=== PATIENT | male | born 1995 | race African-American/Black ===

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

== ENCOUNTER 2017-02-06 11:34 | Emergency (ER) | payer OTHER ==
[2017-02-06] MEDS ORDERED: Polymyx/Trimethoprim OPTH* 10 ML BTL BOTH EYES ONE (13:22)
--- NOTE | 2017-02-06 13:40 | ED ---
Influenza-Like Illness - HPI Summary HPI Summary: Patient presents with red itchy eyes, sore throat and cough for two days. He presents mostly concerned that his eyes are so "crusty" in the morning and he's never had anything like this before. He has used cough medicine and honey for his throat and cough with good relief. No fever, chills, fatigue, [place], ear or neck pain. - History of Current Complaint Chief Complaint: EDUpperRespComplaint Time Seen by Provider: 02/06/17 12:51 Hx Obtained From: Patient Onset/Duration: Gradual Onset Severity: Moderate Associated Signs & Symptoms: Cough, Sore Throat, Nasal Congestion Related Hx: Possible Flu/Infectious Exposure - Allergy/Home Medications Allergies/Adverse Reactions: Allergies Allergy/AdvReac Type Severity Reaction Status Date / Time pollen Allergy Congestion Uncoded 10/14/16 11:25 PMH/Surg Hx/FS Hx/Imm Hx Endocrine/Hematology History: Denies: Hx Diabetes, Hx Thyroid Disease Cardiovascular History: Denies: Hx Congenital Heart Disease Respiratory History: Reports: Hx Asthma GI History: Denies: Hx Irritable Bowel Sensory History: Denies: Hx Contacts or Glasses, Hx Hearing Aid Opthamlomology History: Denies: Hx Contacts or Glasses Neurological History: Denies: Hx Headaches, Hx Seizures Psychiatric History: Denies: Hx Anxiety - Surgical History Surgery Procedure, Year, and Place: none - Immunization History Date of Tetanus Vaccine: 2009 Infectious Disease History: No Infectious Disease History: Denies: Traveled Outside the [place] in Last 30 Days - Family History Known Family History: Positive: None Negative: Cardiac Disease - Social History Occupation: Employed Full-time Lives: With Family Alcohol Use: None Hx Substance Use: No Substance Use Type: Reports: None Hx Tobacco Use: No Smoking Status (MU): Never Smoked Tobacco Review of Systems Positive: Fatigue. Negative: Fever, Chills Positive: Drainage - morning mostly, Erythema - bilateral . Negative: Blurred Vision, Diplopia Positive: Sore Throat, Nasal Discharge. Negative: Ear Ache Negative: Chest Pain Positive: Cough. Negative: Shortness Of Breath Negative: Vomiting, Diarrhea, Nausea Positive: no symptoms reported Negative: Myalgia Negative: Headache All Other Systems Reviewed And Are Negative: Yes Physical Exam Triage Information Reviewed: Yes Vital Signs On Initial Exam: Initial Vitals Temp 97.5 F 02/06/17 11:37 Vital Signs Reviewed: Yes Appearance: Positive: Well-Appearing, No Pain Distress, Well-Nourished Skin: Positive: Warm, Skin Color Reflects Adequate Perfusion, Dry, Soft Head/Face: Positive: Normal Head/Face Inspection Eyes: Positive: EOMI, EVA, Conjunctiva Inflammed - bilataral, Discharge - clear ENT: Positive: Hearing grossly normal, Pharyngeal erythema, TMs normal. Negative: Tonsillar swelling, Tonsillar exudate, Trismus, Muffled/hoarse voice Neck: Positive: Supple, Nontender, No Lymphadenopathy Respiratory/Lung Sounds: Positive: Clear to Auscultation, Breath Sounds Present Cardiovascular: Positive: RRR Musculoskeletal: Negative: Edema Left, Edema Right Neurological: Positive: Sensory/Motor Intact, Alert, Oriented to Person Place, Time, NV Bundle Intact Distally, Normal Gait Psychiatric: Positive: Affect/Mood Appropriate AVPU Assessment: Alert - [place] Coma Scale Coma Scale Total: 15 Diagnostics - Vital Signs Vital Signs Temp Pulse Resp BP Pulse Ox 02/06/17 12:52 98.9 F 88 18 120/62 99 02/06/17 11:39 97.5 F 87 20 150/90 99 02/06/17 11:37 97.5 F - Laboratory Lab Statement: Any lab studies that have been ordered have been reviewed, and results considered in the medical decision making process. Flu Symptom Course/Dx - Diagnoses Differential Diagnosis/HQI/PQRI: Positive: Bronchitis, Influenza, Pneumonia, Upper Respiratory Infection Provider Diagnoses: Viral illness, Conjunctivitis Discharge - Discharge Plan Condition: Stable Disposition: HOME Patient Education Materials: Viral Syndrome (ED) Referrals: Stuart Cowan MD [Primary Care Provider] - Additional Instructions: Please use the drops provided until symptoms have been resolved for 24 hours. Continue using cough medication and cough drops. Drink extra fluids and get extra rest. Follow-up with your primary care provider if symptoms do not improve in 5-7 days. Return to the emergency department if symptoms worsen.
[2017-02-06 13:49] VITALS: BP 126/68
== END 2017-02-06 13:48 | disposition home or self-care (01) ==
LOC: ED 11:34
DX: B34.9 Viral infection, unspecified (principal); H10.9 Unspecified conjunctivitis; J02.9 Acute pharyngitis, unspecified; R53.83 Other fatigue
CPT/HCPCS: 87651; 99282

== ENCOUNTER 2017-05-02 19:39 | Emergency (ER) | payer OTHER ==
[2017-05-02 19:45] VITALS: BP 130/74
[2017-05-02] MEDS ORDERED: Albuterol/Ipratropium NEB.SOL* Albuterol 2.5 MG/Ipratropium 0.5 MG 3 ML INH ONE (20:04)
[2017-05-02] MEDS ORDERED: predniSONE TAB* 20 MG PO ONE (20:07)
--- NOTE | 2017-05-03 00:23 | ED ---
Mitzy Zarate Rebecca, scribed for Michael Duncan MD on 05/02/17 at 1957 . Asthma - HPI Summary HPI Summary: Pt is a 21 y/o M with a PMHx of asthma presented to ED c/o SOB characterized as dyspnea at rest since this morning. Sx aggravated by nothing, alleviated slightly by albuterol inhaler. Additionally c/o chest tightness and a slight cough. Denies rhionrrhea, sore throat, eye drainage and throat tightening. Pt had 2 asthma attacks last year. Has "heard about" Prednisone, but does not believe he has ever used to before. - History of Current Complaint Chief Complaint: EDAsthma Stated Complaint: SOB Hx Obtained From: Patient Onset/Duration: Still Present Current Severity: None Pain Intensity: 0 Pain Scale Used: 0-10 Numeric Location/Character: Other - SOB, chest tightness Aggravating Symptoms: Nothing Alleviating Symptoms: Inhalers/Nebulizers - INhalers Associated Signs and Symptoms: Positive: Shortness of Breath - Allergy/Home Medications Allergies/Adverse Reactions: Allergies Allergy/AdvReac Type Severity Reaction Status Date / Time pollen Allergy Congestion Uncoded 05/02/17 19:42 PMH/Surg Hx/FS Hx/Imm Hx Endocrine/Hematology History: Denies: Hx Diabetes, Hx Thyroid Disease Cardiovascular History: Denies: Hx Congenital Heart Disease Respiratory History: Reports: Hx Asthma GI History: Denies: Hx Irritable Bowel Sensory History: Denies: Hx Contacts or Glasses, Hx Hearing Aid Opthamlomology History: Denies: Hx Contacts or Glasses Neurological History: Denies: Hx Headaches, Hx Seizures Psychiatric History: Denies: Hx Anxiety - Surgical History Surgery Procedure, Year, and Place: none - Immunization History Date of Tetanus Vaccine: 2009 Infectious Disease History: No Infectious Disease History: Denies: Traveled Outside the [place] in Last 30 Days - Family History Known Family History: Negative: Cardiac Disease - Social History Alcohol Use: None Hx Substance Use: No Substance Use Type: Reports: None Hx Tobacco Use: No Smoking Status (MU): Never Smoked Tobacco Review of Systems Negative: Drainage Positive: Other - NEGATIVE: Throat tightening. Negative: Sore Throat, Nasal Discharge Positive: Other - Chest tightness Positive: Shortness Of Breath, Cough All Other Systems Reviewed And Are Negative: Yes Physical Exam - Summary Physical Exam Summary: The patient is well-nourished in no acute distress and in no acute pain. The skin is warm and skin color reflects adequate perfusion. Skin is slightly diaphoretic and he has good skin turgor. HEENT: The head is normocephalic and atraumatic. The pupils are equal and reactive. The conjunctivae are clear and without drainage. Nares are patent and without drainage. Mouth reveals moist mucous membranes and the throat is without erythema and exudate. The external ears are intact. The ear canals are patent and without drainage. The tympanic membranes are intact. Neck is supple with full range of motion and non-tender. There is some wheezing in his neck with no JVD. No hepatojugular reflex. Respiratory: Chest is non-tender. Diminished breath sounds throughout and he is not moving much air. Wheezing to auscultation. Cardiovascular: Heat is tachycardic. There is no murmur or rub auscultated. Abdomen: The abdomen is soft and non-tender. There are normal bowel sounds heard in all four quadrants and there is no organomegaly palpated. Musculoskeletal: There is no back pain noted. Extremities are non-tender with full range of motion. There is good capillary refill of 2 seconds. Neurological: Patient is alert and oriented to person, place and time. The patient has symmetrical motor strength in all four extremities. Psychiatric: The patient has an appropriate affect and does not exhibit any anxiety or depression. \\ Triage Information Reviewed: Yes Vital Signs On Initial Exam: Initial Vitals Temp Pulse Resp BP Pulse Ox 96.0 F 122 20 130/74 93 05/02/17 19:43 05/02/17 19:43 05/02/17 19:43 05/02/17 19:43 05/02/17 19:43 Vital Signs Reviewed: Yes Diagnostics - Vital Signs Vital Signs Temp Pulse Resp BP Pulse Ox 05/02/17 19:43 96.0 F 122 20 130/74 93 - Laboratory Lab Statement: Any lab studies that have been ordered have been reviewed, and results considered in the medical decision making process. Re-Evaluation - Re-Evaluation First Eval Re-Evaluation Time: 21:16 Change: Improved Comment: After treatment, pt is moving much more air, though he is still wheezing throughout. Reports he feels well enough to go home and does not want a work note. Asthma Course/Dx - Course Assessment/Plan: Pt is a 21 y/o M with a PMHx of asthma presented to ED c/o SOB characterized as dyspnea at rest since this morning. Sx aggravated by nothing, alleviated slightly by albuterol inhaler. Additionally c/o chest tightness and a slight cough. Denies rhionrrhea, sore throat, eye drainage and throat tightening. Pt had 2 asthma attacks last year. Has "heard about" Prednisone, but does not believe he has ever used to before. In the ED course, pt received Prednisone and Duoneb which improved sx. Upon reevaluation, pt continues to wheeze throughout though he is moving more air than previously and states he feels well enough to go home without a work note. Pt will be D/C to home with Dx of acute asthma exerbation with Rx for Prednisone and albuterol inhaler with a workup with his PCP. He understands and is agreeable with this plan. Elevated BP noted and advised to f/u. - Diagnoses Differential Diagnosis/HQI/PQRI: Positive: Acute Asthma Provider Diagnoses: Asthma with acute exacerbation Discharge - Discharge Plan Condition: Stable Disposition: HOME Prescriptions: Albuterol HFA INHALER* [Ventolin HFA Inhaler*] 2 puff INH Q4H PRN #1 mdi PRN Reason: WHEEZING predniSONE TAB* [Deltasone TAB*] 60 mg PO DAILY #15 tab Patient Education Materials: Asthma (ED) Referrals: Stuart Cowan MD [Primary Care Provider] - 3 Days The documentation as recorded by the Mitzy krishnan Rebecca accurately reflects the service I personally performed and the decisions made by me, Michael Duncan MD.
== END 2017-05-02 21:30 | disposition home or self-care (01) ==
LOC: ED 19:39
DX: J45.901 Unspecified asthma with (acute) exacerbation (principal)
CPT/HCPCS: 94640; 99282; A9270-GY; J7512

== ENCOUNTER 2017-06-06 17:50 | Emergency (ER) | payer OTHER ==
[2017-06-06] MEDS ORDERED: Albuterol/Ipratropium NEB.SOL* Albuterol 2.5 MG/Ipratropium 0.5 MG 3 ML INH ONE ×2 (19:01→20:08)
[2017-06-06] MEDS ORDERED: methylPREDNISolone 125 MG* 2 ML VIAL IV ONE (19:01)
[2017-06-06] MEDS ORDERED: Magnesium Sulfate 2 GM IV* 2 GM/50 ML BAG IVPB ONE (20:08)
[2017-06-06 23:11] VITALS: BP 119/73
--- NOTE | 2017-06-18 17:12 | ED ---
Bernabe Zarate Abhishek, scribed for Yunior Motley MD on 06/06/17 at 1900 . Shortness of Breath - HPI Summary HPI Summary: This patient is a 21 year old M presenting to [facility] with a chief complaint of SOB since today. The CC is described as sudden. The patient rates the pain as 9/ 10 in severity. Symptoms aggravated by nothing. Symptoms alleviated by nothing. Patient reports cold , nasal congestion, rhinorrhea, wheezing bilaterally, and expiratory rhonchi. Patient denies sore throat, and fever. PMHx includes asthma. - History of Current Complaint Chief Complaint: EDShortnessOfBreath Time Seen by Provider: 06/06/17 18:30 Hx Obtained From: Patient Onset/Duration: Sudden Onset, Worse Since - since today Timing: Constant Current Severity: Severe Dyspnea At: Rest Aggrevating Factors: Nothing Alleviating Factors: Nothing Associated Signs & Symptoms: Wheezing - bilaterially, Nasal Congestion - since - Allergy/Home Medications Allergies/Adverse Reactions: Allergies Allergy/AdvReac Type Severity Reaction Status Date / Time pollen Allergy Congestion Uncoded 05/02/17 19:42 PMH/Surg Hx/FS Hx/Imm Hx Endocrine/Hematology History: Denies: Hx Diabetes, Hx Thyroid Disease Cardiovascular History: Denies: Hx Congenital Heart Disease Respiratory History: Reports: Hx Asthma GI History: Denies: Hx Irritable Bowel Sensory History: Denies: Hx Contacts or Glasses, Hx Hearing Aid Opthamlomology History: Denies: Hx Contacts or Glasses Neurological History: Denies: Hx Headaches, Hx Seizures Psychiatric History: Denies: Hx Anxiety - Surgical History Surgery Procedure, Year, and Place: none - Immunization History Date of Tetanus Vaccine: 2009 Date of Influenza Vaccine: fall 2015 Infectious Disease History: No Infectious Disease History: Denies: Traveled Outside the [place] in Last 30 Days - Family History Known Family History: Negative: Cardiac Disease - Social History Alcohol Use: None Hx Substance Use: No Substance Use Type: Reports: None Hx Tobacco Use: No Smoking Status (MU): Never Smoked Tobacco Review of Systems Negative: Fever Eyes: Negative Positive: Nasal Discharge, Other - nasal congestion. Negative: Sore Throat Positive: Shortness Of Breath, Other - wheezing bilaterially, expiratory rhonchi Gastrointestinal: Negative Genitourinary: Negative Musculoskeletal: Negative Skin: Negative Neurological: Negative Psychological: Normal All Other Systems Reviewed And Are Negative: Yes Physical Exam - Summary Physical Exam Summary: Constitutional: Well-developed, Well-nourished, Alert. (-) Distressed Skin: Warm, Dry HENT: Normocephalic; Atraumatic Eyes: Conjunctiva normal Neck: Musculoskeletal ROM normal neck. (-) JVD, (-) Stridor, (-) Tracheal deviation Cardio: Rhythm regular, rate normal, Heart sounds normal; Intact distal pulses; The pedal pulses are 2+ and symmetric. Radial pulses are 2+ and symmetric. (-) Murmur Pulmonary/Chest wall: Effort normal. (-) Respiratory distress, (-) Wheezes, (-) Rales Abd: Soft, (-) Tenderness, (-) Distension, (-) Guarding, (-) Rebound Musculoskeletal: (-) Edema Lymph: (-) Cervical adenopathy Neuro: Alert, Oriented x3 Psych: Mood and affect Normal Respiratory: Expiratory wheeze and tachypnea Triage Information Reviewed: Yes Vital Signs On Initial Exam: Initial Vitals Temp Pulse Resp BP Pulse Ox 98.6 F 125 20 128/109 92 06/06/17 17:56 06/06/17 17:56 06/06/17 17:56 06/06/17 17:56 06/06/17 17:56 Vital Signs Reviewed: Yes - [place] Coma Scale Coma Scale Total: 15 Diagnostics - Vital Signs Vital Signs Temp Pulse Resp BP Pulse Ox 06/06/17 18:49 113 94 06/06/17 18:47 115/84 06/06/17 17:56 98.6 F 125 20 128/109 92 - Laboratory Lab Statement: Any lab studies that have been ordered have been reviewed, and results considered in the medical decision making process. Re-Evaluation - Re-Evaluation [id number] Change: Improved Comment: Still wheezing but feels better, stable Course/Dx - Course Course Of Treatment: A 21 -year-old (M/F) presents to the ED with a CC of SOB since today. Patient reports cold since , nasal congestion, rhinorrhea , wheezing bilaterally, and expiratory rhonchi. Patient denies sore throat, and fever. Dx is asthma exacerbation. Recommend spacer at pharmacy. Patient will be (discharged) (with follow up with ( PCP) Dr. Cowan within 2 to 3 days.) Pt is agreeable with this plan. - Diagnoses Provider Diagnoses: Asthma Discharge - Discharge Plan Condition: Stable Disposition: HOME Prescriptions: predniSONE TAB* [Deltasone TAB*] 40 mg PO DAILY #5 tab Patient Education Materials: Asthma (ED) Referrals: Stuart Cowan MD [Primary Care Provider] - (Follow up with PCP within 2 to 3 days ) Additional Instructions: RETURN TO THE EMERGENCY DEPARTMENT FOR CHANGING OR WORSENING SYMPTOMS Recommend asthma spacer at the pharmacy The documentation as recorded by the Bernabe krishnan Abhishek accurately reflects the service I personally performed and the decisions made by Tolu murphy Jerry, MD.
== END 2017-06-06 23:10 | disposition home or self-care (01) ==
LOC: ED 17:50
DX: J45.901 Unspecified asthma with (acute) exacerbation (principal); R09.81 Nasal congestion
CPT/HCPCS: 94640; 96365; 96375; 99284; A9270-GY; J2930; J3475

== ENCOUNTER 2017-07-12 19:08 | Observation (INO) | payer MEDICAID, OTHER ==
[2017-07-12] MEDS ORDERED: Albuterol/Ipratropium NEB.SOL* Albuterol 2.5 MG/Ipratropium 0.5 MG 3 ML INH ONE ×2 (20:03→21:11)
--- NOTE | 2017-07-12 20:04 | ED ---
Asthma - HPI Summary HPI Summary: 22 male presents to ED with complaints of wheezing, dyspnea and asthma exacerbation. Patient states it began yesterday evening and worsened over last night into this morning. Patient has used his albuterol inhaler and nebulizer with last dose are 4pm without much relief. Patient states he does have some sinus congestion and began coughing today. Admits to having some production. No other complaints. Denies sore throat, chest pain, hemoptysis, fever/chills and rhinorrhea. Patient states this happens to him frequently. Feels he is getting an upper respiratory infection that is exacerbating his asthma. No other PMHx. Symptoms aggravated by exertion, alleviated somewhat by albuterol. - History of Current Complaint Chief Complaint: EDUpperRespComplaint Stated Complaint: SOB Time Seen by Provider: 07/12/17 19:29 Hx Obtained From: Patient Onset/Duration: Sudden Onset, Lasting Days - 2, Still Present, Worse Since Timing: Constant Initial Severity: Mild Current Severity: Moderate Pain Intensity: 0 Pain Scale Used: 0-10 Numeric Location/Character: Cough (Productive) - x 1 episode, "scant amount mucus like" Aggravating Symptoms: Exertion Alleviating Symptoms: Inhalers/Nebulizers Associated Signs and Symptoms: Positive: URI - sinus congestion, coughing, feeling ill - Allergy/Home Medications Allergies/Adverse Reactions: Allergies Allergy/AdvReac Type Severity Reaction Status Date / Time pollen Allergy Congestion Uncoded 07/12/17 19:12 PMH/Surg Hx/FS Hx/Imm Hx Endocrine/Hematology History: Denies: Hx Diabetes, Hx Thyroid Disease Cardiovascular History: Denies: Hx Congenital Heart Disease Respiratory History: Reports: Hx Asthma GI History: Denies: Hx Irritable Bowel Sensory History: Denies: Hx Contacts or Glasses, Hx Hearing Aid Opthamlomology History: Denies: Hx Contacts or Glasses Neurological History: Denies: Hx Headaches, Hx Seizures Psychiatric History: Denies: Hx Anxiety - Surgical History Surgery Procedure, Year, and Place: none - Immunization History Date of Tetanus Vaccine: 2009 Date of Influenza Vaccine: fall 2015 Infectious Disease History: No Infectious Disease History: Denies: Traveled Outside the [place] in Last 30 Days - Family History Known Family History: Positive: None Negative: Cardiac Disease - Social History Alcohol Use: None Hx Substance Use: No Substance Use Type: Reports: None Hx Tobacco Use: No Smoking Status (MU): Never Smoked Tobacco Review of Systems Constitutional: Negative Positive: Other - sinus congestion Cardiovascular: Negative Positive: Shortness Of Breath, Cough Gastrointestinal: Negative Musculoskeletal: Negative Neurological: Negative All Other Systems Reviewed And Are Negative: Yes Physical Exam Triage Information Reviewed: Yes Vital Signs On Initial Exam: Initial Vitals Temp Pulse Resp BP Pulse Ox 97.1 F 128 18 139/101 94 07/12/17 19:10 07/12/17 19:10 07/12/17 19:10 07/12/17 19:10 07/12/17 19:10 tachycardia noted, patient experiencing dyspnea, is a typical finding for patient during asthma exacerbation, compared to previous and typical range. O2 noted. Vital Signs Reviewed: Yes Appearance: Positive: Well-Appearing, No Pain Distress, Well-Nourished Skin: Positive: Warm, Skin Color Reflects Adequate Perfusion, Dry. Negative: Cold, Numb, Cyanosis @, Diaphoretic, Erythema @ Head/Face: Positive: Normal Head/Face Inspection Eyes: Positive: Conjunctiva Clear ENT: Positive: Hearing grossly normal, Pharynx normal, Nasal congestion, TMs normal, Uvula midline. Negative: Nasal drainage, Tonsillar swelling, Tonsillar exudate, Trismus, Muffled voice Neck: Positive: Supple, Nontender Respiratory/Lung Sounds: Positive: Breath Sounds Present, Rhonchi - expiratory, Wheezes - audible without auscultation, diffuse, expiratory rhonci, Fatigue - takes breaks in between words when communicating due to difficulty breathing. Negative: Rales, Stridor, Tracheal Deviation Cardiovascular: Positive: Normal, RRR, Pulses are Symmetrical in both Upper and Lower Extremities, Tachycardia. Negative: Murmur, Rub Abdomen Description: Positive: Nontender Bowel Sounds: Positive: Present Musculoskeletal: Positive: Normal, Strength/ROM Intact Neurological: Positive: Normal, Sensory/Motor Intact, Alert, Oriented to Person Place, Time, Normal Gait Diagnostics - Vital Signs Vital Signs Temp Pulse Resp BP Pulse Ox 07/12/17 19:10 97.1 F 128 18 139/101 94 - Laboratory Lab Statement: Any lab studies that have been ordered have been reviewed, and results considered in the medical decision making process. Re-Evaluation - Re-Evaluation First Eval Re-Evaluation Time: 20:50 Change: Improved - had some relief after nebulizer treatment and solumedrol however still wheezing, will give another, vitals improved somewhat Second Eval Re-Evaluation Time: 21:40 Change: Improved - some relief after second duoneb, patient was walked around and O2 lowest was 92 %. however due to lung sounds not improving and still low O2 will obtain ABG's and chest xray Third Eval Re-Evaluation Time: 23:15 Change: Unchanged - still feeling SOB having dyspnea updated on lab results and discussed admission, patient agrees. O2 still in 90-92% range per pulse ox Asthma Course/Dx - Course Course Of Treatment: given nebulizer treatments, solumedrol. appears to be experiencing asthma exacerbation due to possible URI beginning. had some relief , vitals improved. ABGs obtained and chest xray. Chest xray unremarkable. ABG's does show some hypoxia, still O2 at 90-92%. Due to little improvement and hypoxia with history of quickly worsening condition spoke with Dr Tay at 11:20pm who agreed to admission for observation. - Diagnoses Differential Diagnosis/HQI/PQRI: Positive: Acute Asthma, Bronchitis, Other - URI Provider Diagnoses: Asthma exacerbation - Provider Notifications Discussed Care Of Patient With: Dr Gibson, Dr Bennett Time Discussed With Above Provider: 23:20 Instructed by Provider To: Admit As Observation Discharge - Discharge Plan Condition: Stable Disposition: ADMITTED TO [facility] Prescriptions: predniSONE TAB* [Deltasone TAB*] 40 mg PO DAILY #10 tab Referrals: Stuart Cowan MD [Primary Care Provider] -
[2017-07-12] MEDS ORDERED: methylPREDNISolone 125 MG* 2 ML VIAL IM ONE (20:09)
[2017-07-12 23:05] LABS: PCO2 Arterial 36 mmHg (35-45)
[2017-07-12] MEDS ORDERED: CMCS: Melatonin (NF) 3 MG TAB PO PRN (23:21)
[2017-07-12] MEDS ORDERED: Ondansetron INJ* 2 MG/ML VIAL IV PRN (23:21)
[2017-07-12] MEDS ORDERED: Acetaminophen TAB* 325 MG PO PRN (23:21)
[2017-07-12] MEDS ORDERED: Albuterol 2.5 MG/3 ML NEB.SOL* (0.083%) INH PRN (23:21)
--- NOTE | 2017-07-12 23:27 | HP ---
H&P (Free Text) History and Physical: PCP: Maritza Cowan MD Date/Time: 07/12/2017 9267 CC: SOB HPI: Mr Garvin is a 22YO male HX mod persistent asthma presenting with onset last night ~0200 of SOB which awoke him from sleep. He was able to work a full shift at [employer] today, but continues to feel SOB & fatigued despite use of home inhalers/nebulizers. He has been producing clear to light yellowish sputum, but denies F/C, N/V, congestion, sweats, or other issues. PMedHx asthma, never intubated Ambulatory Orders Nursing to reconcile. Albuterol 2.5MG/3ML (0.083%)* [Ventolin 2.5 MG/3 ML NEB.VIKTOR*] 2.5 mg INH Q4H PRN #30 neb.viktor 08/17/16 Albuterol inh POWDER (NF) [Proair Respiclick] 2 puff INH Q4HR PRN 11/26/16 predniSONE TAB* [Deltasone TAB*] 40 mg PO DAILY #10 tab 11/27/16 Cyclobenzaprine TAB* [Flexeril 10 MG TAB*] 10 mg PO BEDTIME PRN #7 tab 12/30/16 Ibuprofen TAB* [Motrin TAB* 600 MG] 600 mg PO Q6H PRN #30 tab 12/30/16 Albuterol HFA INHALER* [Ventolin HFA Inhaler*] 2 puff INH Q4H PRN #1 mdi predniSONE TAB* [Deltasone TAB*] 60 mg PO DAILY #15 tab 05/02/17 predniSONE TAB* [Deltasone TAB*] 40 mg PO DAILY #5 tab 06/06/17 predniSONE TAB* [Deltasone TAB*] 40 mg PO DAILY #10 tab 07/12/17 Allergies pollen Allergy (Uncoded 07/12/17 19:12) Congestion SocHx: denies tobacco, alcohol, & recreational drugs; lives with his mother; works at [employer]; full code status FamHx: reviewed, noncontributory to presentation ROS: as above, otherwise reviewed and all were negative vitals: Vital Signs Temp 37.1 C 07/12/17 21:59 Pulse 126 07/12/17 20:03 Resp 20 07/12/17 20:03 BP 139/101 07/12/17 19:10 Pulse Ox 92 07/12/17 21:59 Intake & Output 07/11/17 07/12/17 07/12/17 23:59 11:59 23:59 Weight 81.647 kg Constitutional: NAD, normally developed, overweight male HEENM: atraumatic; sclera/conjunctiva: anicteric/clear; hearing: clinically intact; oropharynx: clear, mucosa moist Neck: soft tissue: non-tender; thyroid: normal Pulmonary: moderate mid- to end- expiratory wheeze & rhonchi, fair to good aeration, no accessory muscle use CV: RR/RR, normal S1S2, no carotid bruit, no jugular venous distention, 2+ B DP/ PT, no edema Abdominal: soft, non-distended, non-tender, no rebound/guarding/rigidity, normoactive bowel sounds, no hepatosplenomegaly or masses, no costovertebral angle tenderness Musculoskeletal: general: grossly intact, no palpable tenderness; gait: stable Integumental: normal appearance and texture of exposed skin Psychiatric orientation: AA&O to PPS affect: calm mood: cooperative eye contact: good content: reliable responses: timely insight: good Testing: Lab Results 07/12/17 Range/Units 20:53 ABG pH 7.44 (7.35-7.45) ABG pCO2 36 (35-45) mmHg ABG pO2 61 L (80-100) mmHg ABG HCO3 25.3 (19-31) mmol/L ABG O2 Saturation 95.0 (95-98) % ABG Base Excess 0.7 (-2.0-2.0) CXR, personally reviewed: no acute process Impression: 22M HX asthma presenting in exacerbation DIAGNOSIS & PLAN Primary asthma exacerbation : albuterol nebs : mometasone/formoterol : tiotropium : IV methylprednisolone : supplemental oxygen : incentive spirometry : supportive care Admission Rational: observation for asthma exacerbation DVTp: MANUEL Code Status: full
[2017-07-12 23:51] LABS: Hematocrit 47 % (42-52); Hemoglobin 15.7 g/dl (14.0-18.0); Mean Corpuscular HGB Conc 33 g/dl (31-36); Mean Corpuscular Hemoglobin 27 pg (27-31); Mean Corpuscular Volume 80 fL (80-94); Mean Platelet Volume 8 um3 (7.4-10.4); Red Blood Count 5.87 10^6/ul (4.0-5.4); Red Cell Distribution Width 14 % (10.5-15); White Blood Count 18.5 10^3/ul (3.5-10.8)
[2017-07-13 00:06] LABS: BUN/Creatinine Ratio 6.5 (8-20); Calcium 10.3 mg/dL (8.6-10.3); EGFR African American 112.1 (>60); EGFR Non-African American 87.2 (>60); Potassium 3.7 mmol/L (3.5-5.0)
[2017-07-13] MEDS: Albuterol 2.5 MG/3 ML NEB.SOL* (0.083%) INH SCH ×2 (01:01→08:23)
[2017-07-13] MEDS: methylPREDNISolone SOD 40 MG* 1 ML VIAL IV SCH ×2 (03:36→12:27)
[2017-07-13] MEDS ORDERED: Omeprazole CAP* 20 MG PO SCH (06:00)
--- NOTE | 2017-07-13 07:36 | RAD ---
HISTORY: Shortness of breath, wheezing, asthma COMPARISONS: November 26, 2016 VIEWS: 4: Frontal dual-energy and lateral views of the chest. FINDINGS: CARDIOMEDIASTINAL SILHOUETTE: The cardiomediastinal silhouette is normal. ANNABELLE: The annabelle are normal. PLEURA: The costophrenic angles are sharp. No pleural abnormalities are noted. LUNG PARENCHYMA: The lungs are clear. The nodular density noted in the right upper lung the previous examination is no longer evident. ABDOMEN: The upper abdomen is clear. There is no subphrenic gas. BONES AND SOFT TISSUES: No bone or soft tissue abnormalities are noted. OTHER: None. IMPRESSION: NO ACTIVE CARDIOPULMONARY DISEASE.
[2017-07-13] MEDS ORDERED: Spiriva Inhaler DEVICE* 1 EACH DEVICE INH SCH (09:00)
[2017-07-13] MEDS ORDERED: Mometasone/Formoter 200/5 MDI INH SCH (09:00)
[2017-07-13] MEDS ORDERED: Tiotropium CAP.INH* CAP.INH/18 MCG (USE ORDER SET !) INH SCH (09:00)
[2017-07-13 12:05] VITALS: BP 132/66
--- NOTE | 2017-07-13 12:41 | DCNOTE ---
Patient seen this morning. Reports breathing is improved, has received some nebs and an inhaler this morning. Ambulated around the unit with no issues. On exam, RRR, s1 and s2 present, no m/g/r, some scattered wheezing throughout all lung moore, good air movement, no LE edema Discharge today on prednisone and azithromycin. Will make sure patient has home nebulizer. F/U with PCP and Pulm
--- NOTE | 2017-07-14 06:17 | DS ---
CC: Dr. Cowan DISCHARGE SUMMARY: DATE OF ADMISSION: 07/12/17 DATE OF DISCHARGE: 07/13/17 PRIMARY CARE PHYSICIAN: Dr. Cowan. PRINCIPAL DISCHARGE DIAGNOSES: 1. Asthma exacerbation. 2. Acute bronchitis. DISCHARGE MEDICATION REGIMEN: 1. Prednisone 40 mg by mouth daily x4 days. 2. Azithromycin 250 mg tablets, take 2 tablets on day# 1 and one tablet by mouth daily for four days after that. 3. Albuterol 2 puffs inhaled every 4 hours as needed for shortness of breath or wheezing. 4. Ibuprofen 600 mg by mouth every 6 hours as needed for pain. 5. Albuterol neb solution 2.5 mg inhaled every 4 hours as needed for shortness of breath or wheezing . 6. Ventolin inhaler two puffs inhaled every 4 hours as needed for shortness of breath or wheezing. STUDIES DONE DURING HOSPITALIZATION: Chest x-ray, impression: No active cardiopulmonary disease. HISTORY OF PRESENT ILLNESS AND HOSPITAL SUMMARY: Please see the full history and physical by Dr. Rob Ravi for full details. Briefly, Mr. Garvin is a 22- year-old male with a past medical hist ory of moderate persistent asthma who presented to the hospital with shortness of breath and producti ve cough. 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 His O2 levels in the ED were in the low 90s and despite IV Solu-Medrol in the emergency department and a number of nebs, he remained wheezy and with relatively low O2 levels. The decision was made to admit the patient. He stayed overnight. He received two additional doses of IV Solu-Medrol along with some nebulizers a nd an inhaler with significant improvement in his symptoms. The patient still had some wheezes on th e lung exam, but he was ambulatory around the unit with no shortness of breath and was satting in the high 90s on the room air. The patient will be discharged with a Z-Phong as well as four additional day s of p.o. prednisone. He should follow up with his PCP as well as with Dr. El as an outpatient. TIME SPENT: Total time spent on this discharge, 45 minutes. This is a summary of the hospitalization. Please see the full medical record for further details. [id number]/CPS #: [id number]
== END 2017-07-13 13:25 | disposition home or self-care (01) ==
LOC: ED 19:08 → MED 23:18
PROVIDERS: ADMIT Hospitalist; ATTEND Hospitalist
DX: J45.901 Unspecified asthma with (acute) exacerbation (principal); J20.9 Acute bronchitis, unspecified; Z79.899 Other long term (current) drug therapy
CPT/HCPCS: 36415; 36600; 71020; 80048; 82803; 85025; 87502; 94640; 94760; 96372; 96374; 99283; A9270-GY; G0378; J2920; J2930

== ENCOUNTER 2017-10-20 09:16 | Emergency (ER) | payer OTHER ==
[2017-10-20] MEDS ORDERED: Ondansetron INJ* 2 MG/ML VIAL IV ONE (09:46)
[2017-10-20] MEDS ORDERED: Ondansetron INJ* 2 MG/ML VIAL ONE (09:47)
[2017-10-20] MEDS: NS 0.9% 1000 ML* 3,000 ML IV ONE ×2 (09:52→11:48)
[2017-10-20 10:19] LABS: ABS Basophils 0 10^3/ul (0-0.2); ABS Eosinophils 0.4 10^3/ul (0-0.6); ABS Lymphocytes 0.9 10^3/ul (1.0-4.8); ABS Monocytes 0.7 10^3/ul (0-0.8); ABS Neutrophils 11.8 10^3/ul (1.5-7.7); ABS Nucleated RBC 0 10^3/ul; Hematocrit 49 % (42-52); Hemoglobin 16.6 g/dl (14.0-18.0); Lymphocyte % 6.5 % (25-47); Mean Corpuscular HGB Conc 34 g/dl (31-36); Mean Corpuscular Hemoglobin 27 pg (27-31); Mean Corpuscular Volume 81 fL (80-94); Mean Platelet Volume 8 um3 (7.4-10.4); Nucleated Red Blood Cells % 0; Platelet Count 213 10^3/ul (150-450); Red Blood Count 6.12 10^6/ul (4.0-5.4); Red Cell Distribution Width 14 % (10.5-15); White Blood Count 13.8 10^3/ul (3.5-10.8)
[2017-10-20 10:38] LABS: EGFR Non-African American 79.5 (>60)
[2017-10-20 13:32] VITALS: BP 139/73
--- NOTE | 2017-10-20 13:36 | ED ---
Karlo Zarate Jennifer, scribed for Geoffrey Dalal MD on 10/20/17 at 1128 . Abdominal Pain/Male - HPI Summary HPI Summary: The patient is a 22 year old male who complains of diffuse abdominal pain with N /V/D that began at 00:30 this morning. Pt reports he was feeling fine yesterday , but he was the only one in his family who ate at [employer] before this episode. Pt reports the vomiting is constant and observed food and blood in the vomit. He additionally complains of chills and dry mouth. He denies taking anything for the pain. Pt reports he feels slightly better in the ED. - History of Current Complaint Chief Complaint: EDNauseaVomitDiarrh Stated Complaint: ABD PAIN/VOMITING Time Seen by Provider: 10/20/17 09:46 Hx Obtained From: Patient Onset/Duration: Sudden Onset, Lasting Hours - About 11 hours ago, Still Present Timing: Constant Severity Initially: Severe Severity Currently: Moderate Pain Intensity: 10 Pain Scale Used: 0-10 Numeric Location: Diffuse Radiates: No Aggravating Factor(s): Nothing Alleviating Factor(s): Nothing Associated Signs And Symptoms: Positive: Other - Nausea, vomiting, diarrhea, chills, dry mouth. - Allergies/Home Medications Allergies/Adverse Reactions: Allergies Allergy/AdvReac Type Severity Reaction Status Date / Time pollen Allergy Congestion Uncoded 07/12/17 19:12 PMH/Surg Hx/FS Hx/Imm Hx Endocrine/Hematology History: Denies: Hx Diabetes, Hx Thyroid Disease, Hx Anemia Cardiovascular History: Denies: Hx Congenital Heart Disease, Hx Hypertension Respiratory History: Reports: Hx Asthma, Other Respiratory Problems/Disorders - bronchitis GI History: Denies: Hx Irritable Bowel Sensory History: Denies: Hx Contacts or Glasses, Hx Hearing Aid Opthamlomology History: Denies: Hx Contacts or Glasses Neurological History: Denies: Hx Headaches, Hx Seizures Psychiatric History: Denies: Hx Anxiety - Surgical History Surgery Procedure, Year, and Place: none - Immunization History Date of Tetanus Vaccine: 2009 Date of Influenza Vaccine: fall 2015 Infectious Disease History: No Infectious Disease History: Denies: Traveled Outside the [place] in Last 30 Days - Family History Known Family History: Negative: Cardiac Disease - Social History Alcohol Use: None Hx Substance Use: No Substance Use Type: Reports: None Hx Tobacco Use: No Smoking Status (MU): Never Smoked Tobacco Review of Systems Positive: Chills. Negative: Fever ENT: Other - Dry Mouth Positive: Abdominal Pain, Vomiting, Diarrhea, Nausea All Other Systems Reviewed And Are Negative: Yes Physical Exam - Summary Physical Exam Summary: General: well-appearing, no pain distress Skin: warm, color reflects adequate perfusion, dry Head: normal Eyes: EOMI, EVA ENT: normal Neck: supple, nontender Respiratory: CTA, breath sounds present Cardiovascular: RRR Abdomen: soft, mild diffuse tenderness in abdomen, no rebound Bowel: present Musculoskeletal: normal, strength/ROM intact Neurological: normal, sensory/motor intact, A&O x3 Psychological: affect/mood appropriate Triage Information Reviewed: Yes Vital Signs On Initial Exam: Initial Vitals Temp Pulse Resp BP Pulse Ox 96.3 F 95 16 138/92 100 10/20/17 09:18 10/20/17 09:18 10/20/17 09:18 10/20/17 09:18 10/20/17 09:18 Vital Signs Reviewed: Yes Diagnostics - Vital Signs Vital Signs Temp Pulse Resp BP Pulse Ox 10/20/17 09:18 96.3 F 95 16 138/92 100 - Laboratory Lab Results: Lab Results 10/20/17 10/20/17 10/20/17 Range/Units 09:56 09:56 09:56 WBC 13.8 H (3.5-10.8) 10^3/ul RBC 6.12 H (4.0-5.4) 10^6/ul Hgb 16.6 (14.0-18.0) g/dl Hct 49 (42-52) % MCV 81 (80-94) fL MCH 27 (27-31) pg MCHC 34 (31-36) g/dl RDW 14 (10.5-15) % Plt Count 213 (150-450) 10^3/ul MPV 8 (7.4-10.4) um3 Neut % (Auto) 85.3 H (38-83) % Lymph % (Auto) 6.5 L (25-47) % [place] % (Auto) 5.0 (0-7) % Eos % (Auto) 3.0 (0-6) % Baso % (Auto) 0.2 (0-2) % Absolute Neuts (auto) 11.8 H (1.5-7.7) 10^3/ul Absolute Lymphs (auto) 0.9 L (1.0-4.8) 10^3/ul Absolute Monos (auto) 0.7 (0-0.8) 10^3/ul Absolute Eos (auto) 0.4 (0-0.6) 10^3/ul Absolute Basos (auto) 0 (0-0.2) 10^3/ul Absolute Nucleated RBC 0 10^3/ul Nucleated RBC % 0 Sodium 138 (133-145) mmol/L Potassium 3.7 (3.5-5.0) mmol/L Chloride 101 (101-111) mmol/L Carbon Dioxide 28 (22-32) mmol/L Anion Gap 9 (2-11) mmol/L BUN 10 (6-24) mg/dL Creatinine 1.17 (0.67-1.17) mg/dL Est GFR ( Amer) 102.2 (>60) Est GFR (Non-Af Amer) 79.5 (>60) BUN/Creatinine Ratio 8.5 (8-20) Glucose 122 H (70-100) mg/dL Lactic Acid 2.4 H* (0.5-2.0) mmol/L Calcium 10.2 (8.6-10.3) mg/dL Total Bilirubin 0.70 (0.2-1.0) mg/dL AST 36 (13-39) U/L ALT 39 (7-52) U/L Alkaline Phosphatase 111 H (34-104) U/L C-Reactive Protein 2.42 (< 5.00) mg/L Total Protein 8.2 (6.4-8.9) g/dL Albumin 4.8 (3.2-5.2) g/dL Globulin 3.4 (2-4) g/dL Albumin/Globulin Ratio 1.4 (1-3) Lipase < 10 L (11.0-82.0) U/L Result Diagrams: 10/20/17 09:56 10/20/17 09:56 Lab Statement: Any lab studies that have been ordered have been reviewed, and results considered in the medical decision making process. Abdominal Pain Fem Course/Dx - Course Course Of Treatment: IMPROVED IN ED. F/U PMD; RETURN IF WORSE. Assessment/Plan: Allergies noted. BP noted and advised to follow-up with PCP. - Diagnoses Provider Diagnoses: Elevated BP without diagnosis of hypertension, Dehydration, Nausea & vomiting, Abdominal pain Discharge - Discharge Plan Condition: Stable Disposition: HOME Prescriptions: Ondansetron ODT TAB* [Zofran 4 MG Odt TAB*] 4 mg PO Q6H PRN #10 tab.odt PRN Reason: Nausea Patient Education Materials: Dehydration (ED), Acute Nausea and Vomiting (ED), Abdominal Pain (ED) Forms: *Work Release Referrals: Stuart Cowan MD [Primary Care Provider] - Additional Instructions: FOLLOW UP WITH YOUR DOCTOR. RETURN TO THE EMERGENCY DEPARTMENT FOR ANY WORSENING OF YOUR CONDITION OR QUESTIONS OR CONCERNS. YOUR BLOOD PRESSURE WAS ELEVATED TODAY; FOLLOW UP WITH YOUR PRIMARY CARE DOCTOR WITHIN THE NEXT 1 WEEK. The documentation as recorded by the Karlo krishnan Jennifer accurately reflects the service I personally performed and the decisions made by me, Geoffrey Dalal MD.
== END 2017-10-20 13:32 | disposition home or self-care (01) ==
LOC: ED 09:16
DX: R10.9 Unspecified abdominal pain (principal); R03.0 Elevated blood-pressure reading, without diagnosis of hypertension; E86.0 Dehydration; R11.2 Nausea with vomiting, unspecified
CPT/HCPCS: 36415; 80053; 83605; 83690; 85025; 86140; 96361; 96374; 99282; J2405

== ENCOUNTER 2017-10-31 22:53 | Observation (INO) | payer MEDICARE, MEDICAID ==
[2017-10-31] MEDS ORDERED: NS 0.9% 1000 ML* 1,000 ML IV ONE (23:42)
[2017-10-31] MEDS ORDERED: methylPREDNISolone 125 MG* 2 ML VIAL IV ONE ×2 (23:42)
[2017-10-31] MEDS ORDERED: Albuterol/Ipratropium NEB.SOL* Albuterol 2.5 MG/Ipratropium 0.5 MG 3 ML INH ONE ×2 (23:42)
[2017-10-31] MEDS ORDERED: Magnesium Sulfate 2 GM IV* 2 GM/50 ML BAG IVPB ONE ×2 (23:42)
[2017-10-31] MEDS ORDERED: Albuterol 2.5 MG/3 ML NEB.SOL* (0.083%) INH ONE (23:45)
[2017-10-31] MEDS: Albuterol 2.5 MG/3 ML NEB.SOL* (0.083%) INH SCH (23:55)
[2017-11-01] MEDS: Albuterol 2.5 MG/3 ML NEB.SOL* (0.083%) INH SCH ×3 (00:01→13:06)
[2017-11-01] MEDS ORDERED: Ketorolac INJ* 30 MG/ML 1 ML VIAL IV PUSH ONE ×2 (00:36)
[2017-11-01 00:50] LABS: ABS Basophils 0 10^3/ul (0-0.2); ABS Eosinophils 0.2 10^3/ul (0-0.6); ABS Lymphocytes 1.6 10^3/ul (1.0-4.8); ABS Neutrophils 10.8 10^3/ul (1.5-7.7); ABS Nucleated RBC 0 10^3/ul; Eosinophil % 1.2 % (0-6); Hematocrit 46 % (42-52); Hemoglobin 15.3 g/dl (14.0-18.0); Lymphocyte % 11.5 % (25-47); Mean Corpuscular HGB Conc 33 g/dl (31-36); Mean Corpuscular Hemoglobin 27 pg (27-31); Mean Corpuscular Volume 80 fL (80-94); Mean Platelet Volume 8 um3 (7.4-10.4); Nucleated Red Blood Cells % 0; Platelet Count 244 10^3/ul (150-450); Red Blood Count 5.76 10^6/ul (4.0-5.4); Red Cell Distribution Width 14 % (10.5-15); White Blood Count 13.6 10^3/ul (3.5-10.8)
[2017-11-01] MEDS ORDERED: Albuterol/Ipratropium NEB.SOL* Albuterol 2.5 MG/Ipratropium 0.5 MG 3 ML INH ONE (04:09)
[2017-11-01] MEDS ORDERED: Albuterol 2.5 MG/3 ML NEB.SOL* (0.083%) INH ONE ×3 (04:17→07:00)
--- NOTE | 2017-11-01 04:43 | ED ---
Edgar Zarate Tiffany, scribjaquan for Gayle Gibson MD on 11/01/17 at 0003 . Respiratory - HPI Summary HPI Summary: The patient is a 22 year old M presenting to [facility] [place]/o swollen neck since today. The patient rates the pain 9/10 in severity. Symptoms aggravated by nothing. Symptoms alleviated by nothing. Reports raspy voice, sore throat, wheezes, nasal congestion, cough. Denies body aches. Hx of asthma. Uses albuterol treatment (nebulizer and inhaler). Had Nebulizer treatment at 10:00 today. - History of Current Complaint Chief Complaint: EDUpperRespComplaint Stated Complaint: THROAT PAIN Time Seen by Provider: 10/31/17 23:26 Hx Obtained From: Patient Onset/Duration: Lasting Days - Today, Still Present Timing: Constant Current Severity: Severe Pain Intensity: 9 Aggravating Factor(s): Nothing Alleviating Factor(s): Nothing - Allergy/Home Medications Allergies/Adverse Reactions: Allergies Allergy/AdvReac Type Severity Reaction Status Date / Time pollen Allergy Congestion Uncoded 07/12/17 19:12 PMH/Surg Hx/FS Hx/Imm Hx Previously Healthy: No Endocrine/Hematology History: Denies: Hx Diabetes, Hx Thyroid Disease, Hx Anemia Cardiovascular History: Denies: Hx Congenital Heart Disease, Hx Hypertension Respiratory History: Reports: Hx Asthma, Other Respiratory Problems/Disorders - bronchitis GI History: Denies: Hx Irritable Bowel Sensory History: Denies: Hx Contacts or Glasses, Hx Hearing Aid Opthamlomology History: Denies: Hx Contacts or Glasses Neurological History: Denies: Hx Headaches, Hx Seizures Psychiatric History: Denies: Hx Anxiety - Surgical History Surgery Procedure, Year, and Place: none - Immunization History Date of Tetanus Vaccine: 2009 Date of Influenza Vaccine: fall 2015 Infectious Disease History: No Infectious Disease History: Denies: Traveled Outside the [place] in Last 30 Days - Family History Known Family History: Negative: Cardiac Disease - Social History Alcohol Use: None Hx Substance Use: No Substance Use Type: Reports: None Hx Tobacco Use: No Smoking Status (MU): Never Smoked Tobacco Review of Systems Positive: Other - Swollen neck, raspy voice Positive: Sore Throat, Other - Nasal congestion Positive: Cough Negative: Myalgia All Other Systems Reviewed And Are Negative: Yes Physical Exam - Summary Physical Exam Summary: VITAL SIGNS: Reviewed. GENERAL: Patient is a well-developed and nourished male who is lying comfortable in the stretcher. Patient is not in any acute respiratory distress. HEAD AND FACE: No signs of trauma. No ecchymosis, hematomas or skull depressions. No sinus tenderness. EYES: PERRLA, EOMI x 2, No injected conjunctiva, no nystagmus. EARS: Hearing grossly intact. Ear canals and tympanic membranes are within normal limits. THROAT: Pharyngeal erythema with no exudate NECK: Supple, trachea is midline, no adenopathy, no JVD, no carotid bruit, no c- spine tenderness, neck with full ROM. CHEST: Bilateral inspiratory and expiratory wheezes LUNGS: Clear to auscultation bilaterally. No wheezing or crackles. CVS: Regular rate and rhythm, S1 and S2 present, no murmurs or gallops appreciated. ABDOMEN: Soft, non-tender. No signs of distention. No rebound no guarding, and no masses palpated. Bowel sounds are normal. EXTREMITIES: FROM in all major joints, no edema, no cyanosis or clubbing. NEURO: Alert and oriented x 3. No acute neurological deficits. Speech is normal and follows commands. SKIN: Dry and warm Triage Information Reviewed: Yes Vital Signs On Initial Exam: Initial Vitals Temp Pulse Resp BP Pulse Ox 97.7 F 106 20 132/99 92 10/31/17 22:56 10/31/17 22:56 10/31/17 22:56 10/31/17 22:56 10/31/17 22:56 Vital Signs Reviewed: Yes Diagnostics - Vital Signs Vital Signs Temp Pulse Resp BP Pulse Ox 10/31/17 23:37 19 10/31/17 23:36 138/69 10/31/17 23:35 99 93 10/31/17 23:26 98.3 F 74 14 122/78 98 10/31/17 22:56 97.7 F 106 20 132/99 92 - Laboratory Result Diagrams: 10/31/17 23:55 10/31/17 23:55 Lab Statement: Any lab studies that have been ordered have been reviewed, and results considered in the medical decision making process. - Radiology CXR Radiology Interpretation Completed By: ED Physician Re-Evaluation - Re-Evaluation First Eval Re-Evaluation Time: 04:09 Change: Improved Comment: Patient feels better but still has bilateral wheezes. Disposition - Course Course Of Treatment: 22 y/o M presents with respiratory complaint. Has hx of asthma. CXR reveals no acute porosis. Patient given breathing treatment in ED. Condition improved but still having bilateral wheezes. Patient will be admitted to hospitalist. The patient is agreeable with this plan. - Diagnoses Provider Diagnoses: Asthma exacerbation - Physician Notifications Discussed Care Of Patient With: Patricio Ravi Time Discussed With Above Provider: 04:29 Instructed by Provider To: Other - Dr. Ravi (hospitalist) agrees to admit patient. Discharge - Discharge Plan Condition: Fair Disposition: ADMITTED TO [facility] Referrals: Stuart Cowan MD [Primary Care Provider] - The documentation as recorded by the Edgar krishnan Tiffany accurately reflects the service I personally performed and the decisions made by , Gayle Gibson MD.
[2017-11-01] MEDS ORDERED: Ondansetron INJ* 2 MG/ML VIAL IV PRN (04:46)
[2017-11-01] MEDS ORDERED: traMADol TAB* 50 MG PO ONE (04:46)
[2017-11-01] MEDS ORDERED: traMADol TAB* 50 MG PO PRN (04:46)
[2017-11-01] MEDS ORDERED: Acetaminophen TAB* 325 MG PO PRN (04:46)
[2017-11-01] MEDS ORDERED: Albuterol 2.5 MG/3 ML NEB.SOL* (0.083%) INH PRN (04:46)
[2017-11-01] MEDS ORDERED: CMCS:Melatonin (NF) 3 MG TAB PO PRN (04:46)
--- NOTE | 2017-11-01 04:50 | HP ---
H&P (Free Text) History and Physical: PCP: Maritza Coawn MD Date/Time: 11/01/2017 0440 CC: SOB, sore throat HPI: Mr Garvin is a 22YO male HX mod persistent asthma who went to bed feeling fine. He awoke just prior to midnight feeling SOB with a sore throat and hoarse voice. He has a dry cough associated with some nausea, but no emesis, F/C, diarrhea, abdominal pain, earache, or other issues. He took a breathing treatment prior to coming in with no improvement. He denies exacerbating or alleviating symptoms. He has never been intubated. In the ED he has received alburol/ipratropium x2, albuterol alone x2, 2g magnesium IV, 125mg methylprednisolone IV, & 1L NS and while his SOB is improved he continues to have prominent wheezing prompting request for admission. PMedHx asthma, never intubated Ambulatory Orders Nursing to reconcile. Ondansetron ODT TAB* [Zofran 4 MG Odt TAB*] 4 mg PO Q6H PRN #10 tab.odt Allergies pollen Allergy (Uncoded 07/12/17 19:12) Congestion SocHx: denies tobacco, alcohol, & recreational drugs; lives with his mother; works at [employer] [place] [employer]; full code status FamHx: reviewed, noncontributory to presentation ROS: as above, otherwise reviewed and all were negative vitals: Vital Signs Temp 36.8 C 10/31/17 23:26 Pulse 76 11/01/17 04:23 Resp 21 11/01/17 04:23 BP 131/60 11/01/17 03:30 Pulse Ox 95 11/01/17 04:23 Intake & Output 10/31/17 10/31/17 11/01/17 11:59 23:59 12:59 Intake Total 60 Balance 60 Weight 81.647 kg Intake: IV Fluids 60 Constitutional: NAD, normally developed, overweight male HEENM: atraumatic; sclera/conjunctiva: anicteric/clear; hearing: intact; oropharynx: clear, mucosa moist Neck: soft tissue: non-tender; thyroid: normal Pulmonary: moderate rhodes-inspiratory/expiratory wheeze with mid- to end- expiratory rhonchi, fair aeration, no accessory muscle use CV: RR/RR, normal S1S2, no carotid bruit, no jugular venous distention, 2+ B DP/ PT, no edema Abdominal: soft, non-distended, non-tender, no rebound/guarding/rigidity, normoactive bowel sounds, no hepatosplenomegaly or masses, no costovertebral angle tenderness Musculoskeletal: general: grossly intact, no palpable tenderness; gait: stable Integumental: normal appearance and texture of exposed skin Psychiatric orientation: AA&O to PPS affect: calm mood: cooperative eye contact: good content: reliable responses: timely insight: good Testing: Lab Results 10/31/17 10/31/17 11/01/17 Range/Units 23:55 23:55 00:15 WBC 13.6 H (3.5-10.8) 10^3/ul RBC 5.76 H (4.0-5.4) 10^6/ul Hgb 15.3 (14.0-18.0) g/dl Hct 46 (42-52) % MCV 80 (80-94) fL MCH 27 (27-31) pg MCHC 33 (31-36) g/dl RDW 14 (10.5-15) % Plt Count 244 (150-450) 10^3/ul MPV 8 (7.4-10.4) um3 Neut % (Auto) 79.3 (38-83) % Lymph % (Auto) 11.5 L (25-47) % [place] % (Auto) 7.7 H (0-7) % Eos % (Auto) 1.2 (0-6) % Baso % (Auto) 0.3 (0-2) % Absolute Neuts (auto) 10.8 H (1.5-7.7) 10^3/ul Absolute Lymphs (auto) 1.6 (1.0-4.8) 10^3/ul Absolute Monos (auto) 1.0 H (0-0.8) 10^3/ul Absolute Eos (auto) 0.2 (0-0.6) 10^3/ul Absolute Basos (auto) 0 (0-0.2) 10^3/ul Absolute Nucleated RBC 0 10^3/ul Nucleated RBC % 0 Sodium 138 (133-145) mmol/L Potassium 3.7 (3.5-5.0) mmol/L Chloride 100 L (101-111) mmol/L Carbon Dioxide 26 (22-32) mmol/L Anion Gap 12 H (2-11) mmol/L BUN 8 (6-24) mg/dL Creatinine 1.05 (0.67-1.17) mg/dL Est GFR ( Amer) 115.8 (>60) Est GFR (Non-Af Amer) 90.0 (>60) BUN/Creatinine Ratio 7.6 L (8-20) Glucose 94 (70-100) mg/dL Calcium 10.1 (8.6-10.3) mg/dL Total Bilirubin 0.40 (0.2-1.0) mg/dL AST 34 (13-39) U/L ALT 46 (7-52) U/L Alkaline Phosphatase 85 (34-104) U/L C-Reactive Protein 6.84 H (< 5.00) mg/L Total Protein 8.0 (6.4-8.9) g/dL Albumin 4.7 (3.2-5.2) g/dL Globulin 3.3 (2-4) g/dL Albumin/Globulin Ratio 1.4 (1-3) Influenza A (Rapid) (Negative) Influenza B (Rapid) (Negative) Group A Strep Rapid Negative (Negative) 11/01/17 Range/Units 00:16 WBC (3.5-10.8) 10^3/ul RBC (4.0-5.4) 10^6/ul Hgb (14.0-18.0) g/dl Hct (42-52) % MCV (80-94) fL MCH (27-31) pg MCHC (31-36) g/dl RDW (10.5-15) % Plt Count (150-450) 10^3/ul MPV (7.4-10.4) um3 Neut % (Auto) (38-83) % Lymph % (Auto) (25-47) % [place] % (Auto) (0-7) % Eos % (Auto) (0-6) % Baso % (Auto) (0-2) % Absolute Neuts (auto) (1.5-7.7) 10^3/ul Absolute Lymphs (auto) (1.0-4.8) 10^3/ul Absolute Monos (auto) (0-0.8) 10^3/ul Absolute Eos (auto) (0-0.6) 10^3/ul Absolute Basos (auto) (0-0.2) 10^3/ul Absolute Nucleated RBC 10^3/ul Nucleated RBC % Sodium (133-145) mmol/L Potassium (3.5-5.0) mmol/L Chloride (101-111) mmol/L Carbon Dioxide (22-32) mmol/L Anion Gap (2-11) mmol/L BUN (6-24) mg/dL Creatinine (0.67-1.17) mg/dL Est GFR ( Amer) (>60) Est GFR (Non-Af Amer) (>60) BUN/Creatinine Ratio (8-20) Glucose (70-100) mg/dL Calcium (8.6-10.3) mg/dL Total Bilirubin (0.2-1.0) mg/dL AST (13-39) U/L ALT (7-52) U/L Alkaline Phosphatase (34-104) U/L C-Reactive Protein (< 5.00) mg/L Total Protein (6.4-8.9) g/dL Albumin (3.2-5.2) g/dL Globulin (2-4) g/dL Albumin/Globulin Ratio (1-3) Influenza A (Rapid) Negative (Negative) Influenza B (Rapid) Negative (Negative) Group A Strep Rapid (Negative) CXR, personally reviewed: no acute process Impression: 22M HX asthma presenting in exacerbation DIAGNOSIS & PLAN Primary asthma exacerbation, likely 2nd viral infection : influenza & rapid strep negative : no indication for ABX at this time, trend temperature curve : albuterol nebs : mometasone/formoterol : tiotropium : IV methylprednisolone : supplemental oxygen : incentive spirometry : supportive care Admission Rational: observation for asthma exacerbation DVTp: MANUEL Code Status: full
[2017-11-01] MEDS ORDERED: NS 0.9% 1000 ML* 1,000 ML IV SCH (05:00)
[2017-11-01] MEDS ORDERED: Omeprazole CAP* 20 MG PO SCH (06:00)
[2017-11-01] MEDS ORDERED: Omeprazole CAP* 20 MG PO ONE (06:00)
[2017-11-01 06:21] LABS: ABS Basophils 0.1 10^3/ul (0-0.2); ABS Eosinophils 0 10^3/ul (0-0.6); ABS Lymphocytes 0.6 10^3/ul (1.0-4.8); ABS Monocytes 0.2 10^3/ul (0-0.8); ABS Neutrophils 16.1 10^3/ul (1.5-7.7); ABS Nucleated RBC 0 10^3/ul; Eosinophil % 0.1 % (0-6); Hematocrit 46 % (42-52); Hemoglobin 15.4 g/dl (14.0-18.0); Lymphocyte % 3.8 % (25-47); Mean Corpuscular HGB Conc 33 g/dl (31-36); Mean Corpuscular Hemoglobin 27 pg (27-31); Mean Corpuscular Volume 81 fL (80-94); Mean Platelet Volume 8 um3 (7.4-10.4); Nucleated Red Blood Cells % 0.1; Platelet Count 254 10^3/ul (150-450); Red Cell Distribution Width 14 % (10.5-15)
[2017-11-01 07:39] VITALS: BP 151/71
--- NOTE | 2017-11-01 07:51 | RAD ---
HISTORY: Shortness of breath COMPARISONS: July 12, 2017 VIEWS: 1: frontal portable view of the chest at 12:40 AM FINDINGS: LINES AND TUBES: None. CARDIOMEDIASTINAL SILHOUETTE: The cardiomediastinal silhouette is normal for portable technique. PLEURA: The costophrenic angles are sharp. No pleural abnormalities are noted. LUNG PARENCHYMA: The lungs are clear. ABDOMEN: The upper abdomen is clear. There is no subphrenic gas. BONES AND SOFT TISSUES: No bone or soft tissue abnormalities are noted. IMPRESSION: NO ACTIVE CARDIOPULMONARY DISEASE.
[2017-11-01] MEDS ORDERED: methylPREDNISolone SOD 40 MG* 1 ML VIAL IV ONE (08:00)
[2017-11-01] MEDS ORDERED: methylPREDNISolone SOD 40 MG* 1 ML VIAL IV SCH (08:00)
[2017-11-01] MEDS ORDERED: Spiriva Inhaler DEVICE* 1 EACH DEVICE SCH (09:00)
[2017-11-01] MEDS ORDERED: Mometasone/Formoter 200/5 MDI INH SCH (09:00)
[2017-11-01] MEDS ORDERED: Tiotropium CAP.INH* CAP.INH/18 MCG (USE ORDER SET !) INH ONE (09:00)
[2017-11-01] MEDS ORDERED: Tiotropium CAP.INH* CAP.INH/18 MCG (USE ORDER SET !) INH SCH (09:00)
[2017-11-01] MEDS ORDERED: Spiriva Inhaler DEVICE* 1 EACH DEVICE ONE (09:00)
[2017-11-01] MEDS ORDERED: Mometasone/Formoter 200/5 MDI INH ONE (09:00)
--- NOTE | 2017-11-02 03:46 | DS ---
CC: Stuart Cowan MD; Eda El MD * DISCHARGE SUMMARY: DATE OF ADMISSION: 11/01/17 DATE OF DISCHARGE: 11/01/17 PRIMARY CARE PHYSICIAN: Stuart Cowan MD PRINCIPAL DIAGNOSIS: Asthma exacerbation secondary to a viral illness. SECONDARY DIAGNOSIS: Moderate persistent asthma. MEDICATIONS: New medications prescribed at discharge: 1. Prednisone taper. 2. Dulera 100/5 two puffs inhaled b.i.d. Remaining medications are unchanged, which is: 1. Albuterol nebulizer q.4 hours as needed. 2. Albuterol inhaler with spacer 2 puffs q.4 hours as needed. HOSPITAL COURSE: Please refer to complete medical records for details thorough history. In summary, this is a 22-year-old male with a past medical history of moderate-persistent asthma, who states the evening prior to his admission, he woke up around midnight, feeling short of breath with the sore throat and hoarse voice. He has had productive cough with some nausea. No vomiting. No diarrhea. No fevers. He states he took a nebulizer treatment with minimal improvement and came to the emergency room for further evaluation. In the emergency room, the patient was given DuoNebs x2, albuterol x2 nebulizer, magnesium, 125 mg of IV Solu-Medrol and 1 L fluid. His shortness of breath has improved, but they were concerned due to his wheezing on exam to refer him for admission. On admission, the patient was continued on IV methylprednisolone. He was started on Dulera and Singulair and continued on albuterol nebs. His initial workup was unremarkable with mildly elevated white count. Electrolyte panel unremarkable, CO2 minimally elevated at 6.84. His flu was negative. His group A Strep was negative. His mono screen was negative. Chest x-ray on admission showed no active cardiopulmonary disease. The patient on encounter states he was able to eat his breakfast without any issue. He has been ambulating. Denies any shortness of breath. His biggest complaint is his sore throat and the nausea. He has seen Dr. El in the past, but not recently. He states he normally uses his albuterol inhaler with spacer or nebulizer every 1 to 2 days for shortness of breath and wheezing. He is not on any maintenance inhaler. The patient states his breathing has improved. He is still wheezing, but good aeration. On exam, his vitals are unremarkable with sats in the mid 90s on room air. He has not required any oxygen throughout his admission and he has been afebrile throughout his admission as well and has show no signs of increased work of breathing. The patient ambulated as well and did not become hypoxic. The patient is going to be discharged to home with followup with his primary care provider and discussed that he needs to reestablish care with Dr. El for more maintenance regimen and to start using the new inhaler Dulera. I also discussed that he should use his albuterol nebulizer or inhaler every 4 hours while he is acutely ill and then to cut back to as needed once his viral illness improves. The patient understands discharge instructions. The patient to resume his regular diet with no restrictions. Activity as tolerated. PATIENT TIME: Greater than 30 minutes spent doing the discharge summary, more than half the time spent in direct patient contact. [id number]/CPS #: [id number] NICK
== END 2017-11-01 14:28 | disposition home or self-care (01) ==
LOC: ED 22:53 → MED 11-01 04:44
PROVIDERS: ADMIT Hospitalist; ATTEND Pediatrics
DX: J45.901 Unspecified asthma with (acute) exacerbation (principal)
CPT/HCPCS: 36415; 71045; 80053; 85025; 86140; 86308; 87040; 87502; 87651; 94640; 96365; 96375; 96376; 99285; A9270-GY; G0378; J1885; J2920; J2930; J3475

== ENCOUNTER 2018-04-23 19:56 | Emergency (ER) | payer MEDICARE, MEDICAID ==
[2018-04-23] MEDS ORDERED: Albuterol/Ipratropium NEB.SOL* Albuterol 2.5 MG/Ipratropium 0.5 MG 3 ML INH PRN (20:52)
[2018-04-23] MEDS ORDERED: methylPREDNISolone 125 MG* 2 ML VIAL IV ONE (20:53)
[2018-04-23] MEDS ORDERED: Albuterol/Ipratropium NEB.SOL* Albuterol 2.5 MG/Ipratropium 0.5 MG 3 ML INH ONE ×2 (20:58→21:49)
[2018-04-23] MEDS ORDERED: Albuterol/Ipratropium NEB.SOL* Albuterol 2.5 MG/Ipratropium 0.5 MG 3 ML ONE (20:59)
[2018-04-23 21:26] LABS: ABS Basophils 0.1 10^3/ul (0-0.2); ABS Eosinophils 0.2 10^3/ul (0-0.6); ABS Lymphocytes 1.1 10^3/ul (1.0-4.8); ABS Monocytes 0.4 10^3/ul (0-0.8); ABS Neutrophils 14.8 10^3/ul (1.5-7.7); ABS Nucleated RBC 0 10^3/ul; Eosinophil % 1.4 % (0-6); Hematocrit 47 % (42-52); Lymphocyte % 6.4 % (25-47); Mean Corpuscular HGB Conc 34 g/dl (31-36); Mean Corpuscular Hemoglobin 27 pg (27-31); Mean Corpuscular Volume 79 fL (80-94); Nucleated Red Blood Cells % 0.1; Platelet Count 240 10^3/ul (150-450); Red Blood Count 5.97 10^6/ul (4.00-5.40); Red Cell Distribution Width 14 % (10.5-15); White Blood Count 16.6 10^3/ul (3.5-10.8)
[2018-04-23 21:43] LABS: EGFR Non-African American 94.2 (>60)
[2018-04-23] MEDS ORDERED: Magnesium Sulfate IV* 0.5 GM/ML 2 ML VIAL (1 GM) IVPB ONE (21:50)
--- NOTE | 2018-04-23 21:52 | ED ---
Respiratory - HPI Summary HPI Summary: 22-year-old male presents to shortness breath today. He states that it feels like his typical asthma symptoms. He states he has been having audible wheezing. He states that it started this morning. Got worse at work. He states he ran out of his inhaler. He did take a breathing treatment at home 5 hours ago. He states that did help a little bit. He states he's had a cough for the past 3 hours. No fever. No muscle aches. No abdominal pain. No nausea and no vomiting. No one else is sick. - History of Current Complaint Chief Complaint: EDShortnessOfBreath Stated Complaint: WHEEZY/COUGH/DIFF BREATHING Time Seen by Provider: 04/23/18 20:49 Pain Intensity: 0 Sputum Amount: None - Allergy/Home Medications Allergies/Adverse Reactions: Allergies Allergy/AdvReac Type Severity Reaction Status Date / Time pollen extracts Allergy Congestion Verified 11/01/17 05:10 PMH/Surg Hx/FS Hx/Imm Hx Endocrine/Hematology History: Denies: Hx Diabetes, Hx Thyroid Disease, Hx Anemia Cardiovascular History: Denies: Hx Congenital Heart Disease, Hx Hypertension Respiratory History: Reports: Hx Asthma, Other Respiratory Problems/Disorders - bronchitis Denies: Hx Chronic Obstructive Pulmonary Disease (COPD) GI History: Denies: Hx Irritable Bowel Sensory History: Denies: Hx Contacts or Glasses, Hx Hearing Aid Opthamlomology History: Denies: Hx Contacts or Glasses Neurological History: Denies: Hx Headaches, Hx Seizures Psychiatric History: Denies: Hx Anxiety - Surgical History Surgery Procedure, Year, and Place: none - Immunization History Date of Tetanus Vaccine: 2009 Date of Influenza Vaccine: fall 2015 Immunizations Up to Date: Yes Infectious Disease History: No Infectious Disease History: Denies: Traveled Outside the [place] in Last 30 Days - Family History Known Family History: Positive: None Negative: Cardiac Disease - Social History Alcohol Use: None Hx Substance Use: No Substance Use Type: Reports: None Hx Tobacco Use: No Smoking Status (MU): Never Smoked Tobacco Review of Systems Negative: Fever Negative: Chest Pain Positive: Shortness Of Breath, Cough All Other Systems Reviewed And Are Negative: Yes Physical Exam Triage Information Reviewed: Yes Vital Signs On Initial Exam: Initial Vitals Temp Pulse Resp BP Pulse Ox 97.7 F 86 23 128/73 95 04/23/18 20:13 04/23/18 20:13 04/23/18 20:13 04/23/18 20:13 04/23/18 20:13 Vital Signs Reviewed: Yes Appearance: Positive: Well-Appearing Skin: Positive: Warm, Dry Head/Face: Positive: Normal Head/Face Inspection Eyes: Positive: Normal, EOMI, EVA, Conjunctiva Clear ENT: Positive: Normal ENT inspection, Pharynx normal, TMs normal Neck: Positive: Supple, Nontender, No Lymphadenopathy Respiratory/Lung Sounds: Positive: Breath Sounds Present, Wheezes Cardiovascular: Positive: Normal, RRR Abdomen Description: Positive: Nontender, Soft Bowel Sounds: Positive: Present Musculoskeletal: Positive: Normal Neurological: Positive: Normal Psychiatric: Positive: Normal Diagnostics - Vital Signs Vital Signs Temp Pulse Resp BP Pulse Ox 04/23/18 21:00 88 94 04/23/18 20:58 77 99 04/23/18 20:54 103 120/77 94 04/23/18 20:53 88 96 04/23/18 20:13 97.7 F 86 23 128/73 95 - Laboratory Lab Results: Lab Results 04/23/18 04/23/18 Range/Units 21:18 21:18 WBC 16.6 H (3.5-10.8) 10^3/ul RBC 5.97 H (4.00-5.40) 10^6/ul Hgb 16.0 (14.0-18.0) g/dl Hct 47 (42-52) % MCV 79 L (80-94) fL MCH 27 (27-31) pg MCHC 34 (31-36) g/dl RDW 14 (10.5-15) % Plt Count 240 (150-450) 10^3/ul MPV 8.0 (7.4-10.4) um3 Neut % (Auto) 89.3 H (38-83) % Lymph % (Auto) 6.4 L (25-47) % [place] % (Auto) 2.5 (0-7) % Eos % (Auto) 1.4 (0-6) % Baso % (Auto) 0.4 (0-2) % Absolute Neuts (auto) 14.8 H (1.5-7.7) 10^3/ul Absolute Lymphs (auto) 1.1 (1.0-4.8) 10^3/ul Absolute Monos (auto) 0.4 (0-0.8) 10^3/ul Absolute Eos (auto) 0.2 (0-0.6) 10^3/ul Absolute Basos (auto) 0.1 (0-0.2) 10^3/ul Absolute Nucleated RBC 0 10^3/ul Nucleated RBC % 0.1 Sodium 138 (135-145) mmol/L Potassium 4.0 (3.5-5.0) mmol/L Chloride 102 (101-111) mmol/L Carbon Dioxide 27 (22-32) mmol/L Anion Gap 9 (2-11) mmol/L BUN 9 (6-24) mg/dL Creatinine 1.01 (0.67-1.17) mg/dL Est GFR ( Amer) 114.0 (>60) Est GFR (Non-Af Amer) 94.2 (>60) BUN/Creatinine Ratio 8.9 (8-20) Glucose 98 (70-100) mg/dL Calcium 10.1 (8.6-10.3) mg/dL Total Bilirubin 0.50 (0.2-1.0) mg/dL AST 28 (13-39) U/L ALT 33 (7-52) U/L Alkaline Phosphatase 95 (34-104) U/L Total Protein 8.0 (6.4-8.9) g/dL Albumin 4.8 (3.2-5.2) g/dL Globulin 3.2 (2-4) g/dL Albumin/Globulin Ratio 1.5 (1-3) Result Diagrams: 04/23/18 21:18 04/23/18 21:18 Lab Statement: Any lab studies that have been ordered have been reviewed, and results considered in the medical decision making process. - Radiology chest Xray Interpretation: No Acute Changes Radiology Interpretation Completed By: ED Physician Re-Evaluation - Re-Evaluation First Eval Re-Evaluation Time: 21:52 Change: Improved Comment: less wheezing Second Eval Re-Evaluation Time: 22:33 Change: Improved Comment: lungs CTA Disposition - Course Course Of Treatment: 22-year-old male presents to shortness breath today. He states that it feels like his typical asthma symptoms. He states he has been having audible wheezing. He states that it started this morning. Got worse at work. He states he ran out of his inhaler. He did take a breathing treatment at home 5 hours ago. He states that did help a little bit. He states he's had a cough for the past 3 hours. No fever. No muscle aches. No abdominal pain. No nausea and no vomiting. No one else is sick. On exam his wheezing present. Gave a DuoNeb and steroid and some improvement. wbc 16. Chest x-ray read by me as normal. Gave another breathing treatment and lungs clear to auscultation. Will discharge with an inhaler and steroid. Patient understands agrees with plan. - Differential Dx - Cardiopulmonary Differential Diagnoses - Cardiopulmonary: Asthma, Bronchitis, Lower Resp Infection - Diagnoses Provider Diagnoses: Asthma exacerbation Discharge - Sign-Out/Discharge Documenting (check all that apply): Patient Departure - Discharge Plan Condition: Good Disposition: HOME Prescriptions: Albuterol HFA INHALER* [Ventolin HFA Inhaler*] 2 puff INH Q4H PRN #1 mdi PRN Reason: Sob/Wheezing predniSONE TAB* [Deltasone TAB*] 50 mg PO DAILY #4 tab Patient Education Materials: Wheezing (ED) Referrals: Stuart Cowan MD [Primary Care Provider] - Additional Instructions: Use inhaler up to two puffs every 4 hours for cough and wheezing Take steroid once a day for 4 more days starting tomorrow Take Tylenol or ibuprofen for pain every 6 hours Follow up with primary within 7 days Return to ED if develop severe shortness of breath, worsening chest pain, or any new or worsening symptoms - Billing Disposition and Condition Condition: GOOD Disposition: Home
[2018-04-23] MEDS ORDERED: Magnesium Sulfate 2 GM IV (Premix) IVPB ONE (22:30)
[2018-04-23] MEDS ORDERED: A lbuterol Hfa (PREPAK) 1 MDI - ED TAKE HOME DISPENSING ONLY INHH ONE (22:31)
[2018-04-23 22:51] VITALS: BP 140/74
--- NOTE | 2018-04-24 09:46 | RAD ---
INDICATION: Wheezing and shortness of breath. History of asthma and bronchitis. COMPARISON: November 01, 2017 TECHNIQUE: Dual energy PA and routine lateral views of the chest were obtained. REPORT: Elevated lung volumes. Minimal prominence of interstitial markings without change. No focal pulmonary lesion, compelling alveolar consolidation, pleural effusion, pneumothorax. The heart, pulmonary vasculature, and mediastinal contours are unremarkable. Unremarkable soft tissue contours and osseous structures. IMPRESSION: #. Stigmata of obstructive lung disease. No acute pulmonary or cardiac process evident. R1
== END 2018-04-23 22:50 | disposition home or self-care (01) ==
LOC: ED 19:56
DX: J45.901 Unspecified asthma with (acute) exacerbation (principal)
CPT/HCPCS: 36415; 71046; 80053; 83735; 85025; 96374; 96375; 99283; A9270-GY; J2930; J3475

== ENCOUNTER 2018-05-31 19:19 | Observation (INO) | payer MEDICARE, MEDICAID ==
[2018-05-31] MEDS ORDERED: Albuterol/Ipratropium NEB.SOL* Albuterol 2.5 MG/Ipratropium 0.5 MG 3 ML INH ONE (19:39)
[2018-05-31] MEDS ORDERED: methylPREDNISolone 125 MG* 2 ML VIAL IV ONE (19:39)
[2018-05-31] MEDS ORDERED: Magnesium Sulfate IV* 0.5 GM/ML 2 ML VIAL (1 GM) IVPB ONE (19:39)
--- NOTE | 2018-05-31 19:42 | ED ---
Respiratory - HPI Summary HPI Summary: A 22 y/o M presents to ED with c/o dyspnea onset two days ago. Associated sx: cough, nasal congestion. Pert PMHx: asthma. Pt uses a nebulizer at home, which he used 1x today this AM before arriving at work. Unknown if tetanus is UTD. No flu shot this year. - History of Current Complaint Chief Complaint: EDUpperRespComplaint Stated Complaint: COUGH/ACHES/WHEEZING Time Seen by Provider: 05/31/18 19:33 Hx Obtained From: Patient Onset/Duration: Lasting Days, Still Present Initial Severity: Moderate Current Severity: Moderate Pain Intensity: 8 Character: Wheezing - and cough, Cough (Nonproductive) Associated Signs and Symptoms: Nasal Congestion - Allergy/Home Medications Allergies/Adverse Reactions: Allergies Allergy/AdvReac Type Severity Reaction Status Date / Time pollen extracts Allergy Congestion Verified 05/31/18 19:35 PMH/Surg Hx/FS Hx/Imm Hx Previously Healthy: No Endocrine/Hematology History: Denies: Hx Diabetes, Hx Thyroid Disease, Hx Anemia Cardiovascular History: Denies: Hx Congenital Heart Disease, Hx Hypertension Respiratory History: Reports: Hx Asthma, Other Respiratory Problems/Disorders - bronchitis Denies: Hx Chronic Obstructive Pulmonary Disease (COPD) GI History: Denies: Hx Irritable Bowel Sensory History: Denies: Hx Contacts or Glasses, Hx Hearing Aid Opthamlomology History: Denies: Hx Contacts or Glasses Neurological History: Denies: Hx Headaches, Hx Seizures Psychiatric History: Denies: Hx Anxiety - Surgical History Surgery Procedure, Year, and Place: none - Immunization History Date of Tetanus Vaccine: 2009 Date of Influenza Vaccine: fall 2015 Infectious Disease History: No Infectious Disease History: Denies: Traveled Outside the [place] in Last 30 Days - Family History Known Family History: Negative: Cardiac Disease - Social History Occupation: Employed Full-time Lives: With Family Alcohol Use: None Hx Substance Use: No Substance Use Type: Reports: None Hx Tobacco Use: No Smoking Status (MU): Never Smoked Tobacco Review of Systems Negative: Fever Positive: Other - pos: nasal congestion Positive: Cough, Other - pos: dyspnea All Other Systems Reviewed And Are Negative: Yes Physical Exam - Summary Physical Exam Summary: VITAL SIGNS: Reviewed. GENERAL: Patient is a well-developed and nourished MALE who is lying comfortable in the stretcher. Patient is not in any acute respiratory distress. HEAD AND FACE: No signs of trauma. No ecchymosis, hematomas or skull depressions. No sinus tenderness. EYES: PERRLA, EOMI x 2, No injected conjunctiva, no nystagmus. EARS: Hearing grossly intact. Ear canals and tympanic membranes are within normal limits. MOUTH: Oropharynx within normal limits. NECK: Supple, trachea is midline, no adenopathy, no JVD, no carotid bruit, no c- spine tenderness, neck with full ROM. CHEST: Symmetric, no tenderness at palpation LUNGS: There are bilateral inspiratory and expiratory wheezes. CVS: Regular rate and rhythm, S1 and S2 present, no murmurs or gallops appreciated. ABDOMEN: Soft, non-tender. No signs of distention. No rebound no guarding, and no masses palpated. Bowel sounds are normal. EXTREMITIES: FROM in all major joints, no edema, no cyanosis or clubbing. NEURO: Alert and oriented x 3. No acute neurological deficits. Speech is normal and follows commands. SKIN: Dry and warm Triage Information Reviewed: Yes Vital Signs On Initial Exam: Initial Vitals Temp Pulse Resp BP Pulse Ox 97.8 F 104 18 137/85 92 05/31/18 19:21 05/31/18 19:21 05/31/18 19:21 05/31/18 19:21 05/31/18 19:21 Vital Signs Reviewed: Yes Diagnostics - Vital Signs Vital Signs Temp Pulse Resp BP Pulse Ox 05/31/18 19:21 97.8 F 104 18 137/85 92 - Laboratory Lab Statement: Any lab studies that have been ordered have been reviewed, and results considered in the medical decision making process. Re-Evaluation - Re-Evaluation 1 Re-Evaluation Time: 20:28 Change: Improved - mildly 2 Re-Evaluation Time: 21:57 Change: Improved Comment: Pt is feeling better and is wheezing less. Disposition - Course Course Of Treatment: A 22 y/o M presents with c/o dyspnea onset two days. Physical exam findings show there are bilateral inspiratory and expiratory wheezes. Pt given Albuterol, Duoneb, Solu-Medrol, Mg Sulfate in ED. Pt wheezing less after treatment. Will D/C home with Albuterol, Prednisone. At D/C, pt was ambulated by nurse and his O2 sat dropped to 88%. Hospitalist paged at 22:48. Consulted with hospitalist, Dr. Anderson, who will admit pt. - Diagnoses Provider Diagnoses: Asthma - Physician Notifications Discussed Care Of Patient With: Aggie Anderson - hospitalist Time Discussed With Above Provider: 23:17 Instructed by Provider To: Admit As Inpatient Discharge - Sign-Out/Discharge Documenting (check all that apply): Patient Departure - ADM - Discharge Plan Condition: Stable Disposition: ADMITTED TO [facility] Prescriptions: Albuterol HFA INHALER* [Ventolin HFA Inhaler*] 2 puff INH Q6H PRN #1 mdi PRN Reason: Sob/Wheezing predniSONE TAB* [Deltasone TAB*] 50 mg PO DAILY #5 tab Patient Education Materials: Albuterol (By breathing), Prednisone (By mouth), Asthma (ED) Referrals: Stuart Cowan MD [Primary Care Provider] - 2 Days Additional Instructions: RETURN TO THE EMERGENCY DEPARTMENT FOR CHANGING OR WORSENING SYMPTOMS. Follow up with your primary care provider in 2-3 days. - Attestation Statements Document Initiated by Scribe: Yes Documenting Scribe: Leo Rae Provider For Whom Scribe is Documenting (Include Credential): Dr. Darwin Gibson MD Scribe Attestation: I, jessy Patelibed for Dr. Darwin Gibson MD on 05/31/18 at 1166.
[2018-05-31] MEDS ORDERED: Magnesium Sulfate 2 GM IV* 2 GM/50 ML BAG ONE (19:56)
[2018-05-31] MEDS: Albuterol 2.5 MG/3 ML NEB.SOL* (0.083%) INH SCH (21:05)
[2018-06-01] MEDS ORDERED: Albuterol/Ipratropium NEB.SOL* Albuterol 2.5 MG/Ipratropium 0.5 MG 3 ML INH PRN (00:03)
[2018-06-01] MEDS ORDERED: Acetaminophen TAB* 325 MG PO PRN (00:03)
[2018-06-01] MEDS ORDERED: Albuterol 2.5 MG/3 ML NEB.SOL* (0.083%) INH PRN (00:03)
[2018-06-01] MEDS ORDERED: Azithromycin TAB* 250 MG PO ONE (00:10)
--- NOTE | 2018-06-01 00:20 | ADMNOTE ---
Subjective Date of Service: 06/01/18 Interval History: hpi 22 yr old aa male with hx of asthma ran out of his inhaler for about one week ago presented to er with c/o sob /wheezing /coughing yellowish to greenish sputum for about one week prior to admission. 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 Medical History: Findings - noncompliance asthma pshx denied Review of Systems - Measurements Intake and Output: Intake and Output Last 24 Hours 05/29/18 05/30/18 05/31/18 06/01/18 06:59 06:59 06:59 06:59 Weight 180 lb - Review of Systems General Comments: please refer to hpi otherwise 08/04 ros reviewed denied beyond his baseline Objective Active Medications: Acetaminophen (Tylenol Tab*) 650 mg PO Q4H PRN PRN Reason: FEVER/PAIN Albuterol (Ventolin Hfa Inhaler*) 2 puff INH Q6H [facility] Albuterol (Ventolin 2.5 Mg/3 Ml Neb.Tuyet*) 2.5 mg INH Q2H PRN PRN Reason: sob/wheezing Albuterol/Ipratropium (Duoneb (Albuterol 2.5 Mg/Ipratropium 0.5 Mg)) 1 neb INH Q6H PRN PRN Reason: SOB/WHEEZING Azithromycin (Zithromax Tab*) 250 mg PO DAILY [facility] Stop: 06/05/18 01:00 Enoxaparin Sodium (Lovenox(*)) 40 mg SUBCUT Q24H [facility] Guaifenesin (Mucinex*) 600 mg PO BID [facility] Vital Signs - 8 hr 05/31/18 05/31/18 05/31/18 19:21 20:09 20:16 Temperature 97.8 F Pulse Rate 104 86 98 Respiratory 18 23 27 Rate Blood Pressure 137/85 138/90 (mmHg) O2 Sat by Pulse 92 100 96 Oximetry 05/31/18 05/31/18 05/31/18 20:17 20:40 21:00 Temperature Pulse Rate 104 97 89 Respiratory 26 28 25 Rate Blood Pressure 153/92 (mmHg) O2 Sat by Pulse 94 90 91 Oximetry 05/31/18 05/31/18 05/31/18 21:05 21:10 21:40 Temperature Pulse Rate 89 91 105 Respiratory 20 16 32 Rate Blood Pressure 114/82 159/81 (mmHg) O2 Sat by Pulse 99 98 96 Oximetry 05/31/18 05/31/18 05/31/18 22:00 22:10 23:00 Temperature Pulse Rate 97 103 104 Respiratory 32 29 29 Rate Blood Pressure 148/85 (mmHg) O2 Sat by Pulse 93 93 91 Oximetry Oxygen Devices in Use Now: Nasal Cannula Eyes: No Scleral Icterus, PERRLA Ears/Nose/Mouth/Throat: NL Teeth, Lips, Gums, Clear Oropharnyx, Mucous Membranes Moist Neck: NL Appearance and Movements; NL JVP, Trachea Midline, No Thyroid Enlargement, Masses Respiratory: Symmetrical Chest Expansion and Respiratory Effort, - - scattered wheezing heard from b/l lung moore Cardiovascular: NL Sounds; No Murmurs; No JVD, RRR, No Edema Abdominal: NL Sounds; No Tenderness; No Distention Extremities: - - able to walk around with no difficulty Skin: No Rash or Ulcers Neurological: Alert and Oriented x 3, NL Sensation, NL Muscle Strength and Tone Assess/Plan/Problems-Billing Assessment: 22 yr old aa male with hx of asthma presented for asthma exccerbation due to running out of albuterol inhaler - Patient Problems (1) Asthma exacerbation Current Visit: No Status: Acute Code(s): J45.901 - UNSPECIFIED ASTHMA WITH ( ACUTE) EXACERBATION SNOMED Code(s): 280474536 Comment: medrodose pack albuterol prn neb besides standing albuterol neb + mdi albuterol recheck pulse ox upon ambulation z pack given d/w him that he needs to be on adavir +- singulair outpt ---> he will d/w pcp (2) Hypoxia Current Visit: Yes Status: Acute Code(s): R09.02 - HYPOXEMIA SNOMED Code(s ): 714525396 Comment: treat the underlying cause which is asthma
[2018-06-01] MEDS: Enoxaparin(*) 40 MG/0.4 ML SYR SUBCUT SCH (03:13)
[2018-06-01] MEDS: Albuterol HFA INHALER* 8 gm MDI INH SCH ×3 (07:02→11:24)
[2018-06-01] MEDS: methylPREDNISolone TAB* 4 MG PO SCH ×4 (08:22→21:55)
[2018-06-01] MEDS: guaiFENesin ER TAB 600 MG PO SCH ×2 (08:22→21:55)
--- NOTE | 2018-06-01 18:36 | PN ---
Subjective Date of Service: 06/01/18 Interval History: Patient seen and evaluated at the bedside. He reports he feels much better. continues to have nasal congestion. reports cough and sputum production - yellow /greenish. Denies fever or chills. Per nurse on RA with ambulation 92%. Continues to have some wheezing. Good appetite. 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 Medical History: Findings - noncompliance asthma pshx denied Objective Active Medications: Acetaminophen (Tylenol Tab*) 650 mg PO Q4H PRN PRN Reason: FEVER/PAIN Albuterol (Ventolin 2.5 Mg/3 Ml Neb.Tuyet*) 2.5 mg INH Q2H PRN PRN Reason: sob/wheezing Albuterol/Ipratropium (Duoneb (Albuterol 2.5 Mg/Ipratropium 0.5 Mg)) 1 neb INH Q6H PRN PRN Reason: SOB/WHEEZING Azithromycin (Zithromax Tab*) 250 mg PO DAILY@2300 [facility] Stop: 06/04/18 23:01 Enoxaparin Sodium (Lovenox(*)) 40 mg SUBCUT Q24H [facility] Last Admin: 06/01/18 03:13 Dose: 40 mg Guaifenesin (Mucinex*) 600 mg PO BID [facility] Last Admin: 06/01/18 08:22 Dose: 600 mg Methylprednisolone (Medrol Tab*) 8 mg PO 0730,2100 [facility] Stop: 06/01/18 23:59 Last Admin: 06/01/18 08:22 Dose: 8 mg Methylprednisolone (Medrol Tab*) 4 mg PO 1300,1800 [facility] Stop: 06/01/18 23:59 Last Admin: 06/01/18 13:23 Dose: 4 mg Methylprednisolone (Medrol Tab*) 4 mg PO 0730,1300,1800 [facility] Stop: 06/02/18 23:59 Methylprednisolone (Medrol Tab*) 8 mg PO 2100 [facility] Stop: 06/02/18 21:01 Methylprednisolone (Medrol Tab*) 4 mg PO 0730,1300,1800,2100 [facility] Stop: 06/03/18 23:59 Methylprednisolone (Medrol Tab*) 4 mg PO 0730,1300,2100 [facility] Stop: 06/04/18 23:59 Methylprednisolone (Medrol Tab*) 4 mg PO 0730,2100 [facility] Stop: 06/05/18 23:59 Methylprednisolone (Medrol Tab*) 4 mg PO ONCE ONE Stop: 06/06/18 07:31 Vital Signs - 8 hr 06/01/18 06/01/18 11:15 15:40 Temperature 98.1 F 97.5 F Pulse Rate 77 84 Respiratory 22 28 Rate Blood Pressure 158/54 125/63 (mmHg) O2 Sat by Pulse 95 94 Oximetry Oxygen Devices in Use Now: Nasal Cannula Appearance: 22 yo male well developed A+O x3 in NAD Eyes: No Scleral Icterus, PERRLA Ears/Nose/Mouth/Throat: NL Teeth, Lips, Gums, Mucous Membranes Moist Neck: NL Appearance and Movements; NL JVP Respiratory: Symmetrical Chest Expansion and Respiratory Effort, Clear to Auscultation Cardiovascular: NL Sounds; No Murmurs; No JVD, RRR, No Edema Abdominal: NL Sounds; No Tenderness; No Distention Extremities: No Edema, No Clubbing, Cyanosis Skin: No Rash or Ulcers, No Nodules or Sclerosis Neurological: Alert and Oriented x 3, NL Sensation, NL Gait, NL Muscle Strength and Tone Lines/Tubes/Other Access: Clean, Dry and Intact Peripheral IV Nutrition: Taking PO's Assess/Plan/Problems-Billing Assessment: 22 yr old aa male with hx of asthma presented for asthma exccerbation due to running out of albuterol inhaler - Patient Problems (1) Asthma exacerbation Comment: Much improvement today but continues to be SOB with exertion and noted O2 sat 90-92% RA continue medrodose pack albuterol prn neb besides standing albuterol neb + mdi albuterol continue z pack Discussed advair +- singulair outpt ---> he will d/w pcp - also discussed follow/referral to pulm. send cbc, CMP, crp, procalcitonin (2) Hypoxia Comment: treat the underlying cause which is asthma (3) DVT prophylaxis Status and Disposition: obv. plan to monitor overnight, most likely DC home tomorrow.
[2018-06-01 19:16] LABS: ABS Basophils 0 10^3/ul (0-0.2); ABS Eosinophils 0 10^3/ul (0-0.6); ABS Lymphocytes 1.2 10^3/ul (1.0-4.8); ABS Monocytes 1.1 10^3/ul (0-0.8); ABS Neutrophils 16.9 10^3/ul (1.5-7.7); ABS Nucleated RBC 0 10^3/ul; Eosinophil % 0.2 % (0-6); Hematocrit 45 % (42-52); Hemoglobin 14.7 g/dl (14.0-18.0); Mean Corpuscular HGB Conc 33 g/dl (31-36); Mean Corpuscular Hemoglobin 27 pg (27-31); Mean Corpuscular Volume 81 fL (80-94); Mean Platelet Volume 7.9 um3 (7.4-10.4); Nucleated Red Blood Cells % 0.1; Platelet Count 237 10^3/ul (150-450); Red Blood Count 5.51 10^6/ul (4.00-5.40); Red Cell Distribution Width 14 % (10.5-15); White Blood Count 19.3 10^3/ul (3.5-10.8)
[2018-06-01 19:47] LABS: Albumin 4.5 g/dL (3.2-5.2); Albumin/Globulin Ratio 1.6 (1-3); BUN/Creatinine Ratio 12.4 (8-20); C Reactive Protein 2.35 mg/L (<8.01); Calcium 9.9 mg/dL (8.6-10.3); Globulin 2.9 g/dL (2-4); Potassium 4.2 mmol/L (3.5-5.0); Total Bilirubin 0.3 mg/dL (0.2-1.0); Total Protein 7.4 g/dL (6.4-8.9)
[2018-06-01] MEDS ORDERED: Azithromycin TAB* 250 MG PO SCH (23:00)
[2018-06-02] MEDS: Enoxaparin(*) 40 MG/0.4 ML SYR SUBCUT SCH (03:12)
[2018-06-02] MEDS ORDERED: methylPREDNISolone TAB* 4 MG PO SCH (07:30)
[2018-06-02] MEDS: guaiFENesin ER TAB 600 MG PO SCH (08:00)
--- NOTE | 2018-06-02 08:44 | RAD ---
Indication: Cough, sputum production 2 views of the chest including dual energy PA views no mediastinal shift. Heart is of normal size and configuration. Lung moore are clear. When compared to previous exam of April 23, 2018 no significant change is noted. IMPRESSION: No active cardiopulmonary disease is identified. R1
[2018-06-02 09:01] VITALS: BP 134/53
--- NOTE | 2018-06-02 09:35 | DCNOTE ---
Subjective Date of Service: 06/02/18 Interval History: Patient reports he feels much better and is ready to go home. He reports occasional cough with sputum production. Denies SOB/Wheezing. No fever or chills. Mom at bedside. 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 Medical History: Findings - noncompliance asthma pshx denied Objective Active Medications: Acetaminophen (Tylenol Tab*) 650 mg PO Q4H PRN PRN Reason: FEVER/PAIN Albuterol (Ventolin 2.5 Mg/3 Ml Neb.Tuyet*) 2.5 mg INH Q2H PRN PRN Reason: sob/wheezing Albuterol/Ipratropium (Duoneb (Albuterol 2.5 Mg/Ipratropium 0.5 Mg)) 1 neb INH Q6H PRN PRN Reason: SOB/WHEEZING Azithromycin (Zithromax Tab*) 250 mg PO DAILY@2300 [facility] Stop: 06/04/18 23:01 Last Admin: 06/01/18 21:55 Dose: 250 mg Enoxaparin Sodium (Lovenox(*)) 40 mg SUBCUT Q24H [facility] Last Admin: 06/02/18 03:12 Dose: Not Given Guaifenesin (Mucinex*) 600 mg PO BID [facility] Last Admin: 06/02/18 08:00 Dose: 600 mg Methylprednisolone (Medrol Tab*) 4 mg PO 0730,1300,1800 [facility] Stop: 06/02/18 23:59 Last Admin: 06/02/18 08:07 Dose: 4 mg Methylprednisolone (Medrol Tab*) 8 mg PO 2100 [facility] Stop: 06/02/18 21:01 Methylprednisolone (Medrol Tab*) 4 mg PO 0730,1300,1800,2100 [facility] Stop: 06/03/18 23:59 Methylprednisolone (Medrol Tab*) 4 mg PO 0730,1300,2100 [facility] Stop: 06/04/18 23:59 Methylprednisolone (Medrol Tab*) 4 mg PO 0730,2100 [facility] Stop: 06/05/18 23:59 Methylprednisolone (Medrol Tab*) 4 mg PO ONCE ONE Stop: 06/06/18 07:31 Vital Signs - 8 hr 06/02/18 06/02/18 06/02/18 03:20 07:44 08:00 Temperature 96.7 F 97.7 F Pulse Rate 85 89 Respiratory 18 18 18 Rate Blood Pressure 143/86 134/53 (mmHg) O2 Sat by Pulse 96 95 Oximetry Oxygen Devices in Use Now: None Appearance: well developed 22 yo male A+O x3 in NAD Eyes: No Scleral Icterus, PERRLA Ears/Nose/Mouth/Throat: NL Teeth, Lips, Gums, Mucous Membranes Moist Respiratory: Symmetrical Chest Expansion and Respiratory Effort, Clear to Auscultation Cardiovascular: NL Sounds; No Murmurs; No JVD, RRR, No Edema Abdominal: NL Sounds; No Tenderness; No Distention Neurological: Alert and Oriented x 3, NL Sensation, NL Gait, NL Muscle Strength and Tone Lines/Tubes/Other Access: Clean, Dry and Intact Peripheral IV Nutrition: Taking PO's Result Diagrams: 06/01/18 19:10 06/01/18 19:10 Assess/Plan/Problems-Billing Assessment: 22 yr old aa male with hx of asthma presented for asthma exccerbation due to running out of albuterol inhaler - Patient Problems (1) Asthma exacerbation Comment: Continues to feel better. O2 sat on RA 97% at rest and with ambulation. Cough improving, continues to have sputum production. Afebrile. leukocytosis but suspect secondary to steroids. Procalcitonin negative. Cxray negative continue prednision taper at DC albuterol prn and dulera continue z pack (2) Hypoxia Comment: resolved. treat the underlying cause which is asthma (3) DVT prophylaxis Status and Disposition: obv. UT home today
[2018-06-02] MEDS ORDERED: methylPREDNISolone TAB* 4 MG PO ONE (21:00)
--- NOTE | 2018-06-03 03:51 | DS ---
CC: Dr. El; Dr. Cowan * DISCHARGE SUMMARY: DATE OF ADMISSION: 06/01/18 DATE OF DISCHARGE: 06/02/18 PROVIDER: Mick Mcgregor NP ATTENDING PHYSICIAN: Dr. Selina Rosado * (report dictated by Mick Mcgregor NP). REFERRING PHYSICIAN: Dr. El. PRIMARY CARE PROVIDER: Dr. Cowan. DISCHARGE DIAGNOSES: 1. Asthma exacerbation. 2. Possible bronchitis. SECONDARY DIAGNOSES: 1. Long-term history of asthma. 2. Environmental allergies. DISCHARGE MEDICATIONS: 1. Prednisone 4 mg p.o. x1 then decreased by 1 mg daily then stop. 2. Mucinex 600 mg p.o. b.i.d. until cough resolved. 3. Dulera 100/5 MDI 2 puffs INH b.i.d. until cough has resolved. 4. Azithromycin 250 mg p.o. daily x3 more doses. 5. Albuterol HFA inhaler 2 puffs INH q.4 hours p.r.n. shortness of breath or wheezing. The patient has been prescribed a new inhaler. 6. Spacer/holding chamber. The patient has been sent in a prescription for a spacer. HISTORY OF PRESENT ILLNESS AND HOSPITAL COURSE: Please see history and physical by Dr. Anderson for full admission details, but in summary, this is a 22- year-old male with a long history of asthma since childhood who presented to the emergency department on 06/01/18 reporting approximately a week ago, he ran out of his albuterol inhaler and was unable to get a refill and complained of shortness of breath with wheezing, coughing with sputum protection approximately 1 week prior to admission. In the ER, he was found to have an O2 saturation of 88% with ambulation and Hospital Medicine was asked to evaluate the patient for admission. He was admitted for asthma exacerbation and possible bronchitis. The patient does report he has environmental allergies to pollen and reports he is especially sensitive around this time of the year reporting worsening asthma symptoms than any other season. He was initially given IV Solu-Medrol in the emergency department and was started on a prednisone taper. He was also started on azithromycin Z-Phong. He was treated with albuterol nebulizers and initially required oxygen for approximately 12 hours, in which he was able to be weaned off and currently, he is oxygenating well on room air with O2 sats of 97% at rest and with exertion. Chest x-ray was negative for acute process. He is noted to have a leukocytosis of 19; however, this was drawn after he was given IV Solu-Medrol and suspect this is secondary to steroid response. He has remained afebrile throughout the hospitalization and hemodynamically stable. Today on evaluation, the patient is ready for discharge to home. His mother is at the bedside. He reports overall he feels much better, cough and sputum production are improving but still present. He denies wheezing or shortness of breath. We discussed referral to sewing machine operator Dr. El, in which referral has been placed to be followed up as an outpatient. As well, I have discussed with the patient and the mother to follow up with his primary care provider this week if possible, if not early next week. DISCHARGE PLAN: 1. Follow up with Dr. Cowan, PCP within 3 to 5 days. 2. Referral to the sewing machine operator, Dr. El has been placed. The patient was instructed to call her office for an appointment. 3. Repeat CMP in 5 to 7 days for noted mild elevation in his AST of 40, as well repeat a CBC at that time. 4. The patient was instructed to return to the emergency department with any worsening or concerning symptoms. 5. As well, I discussed with the patient the possible benefits of improving his overall diet which he reports to be poor in choosing more anti-inflammatory foods which can be directly linked to reducing asthma exacerbations. He is followed [facility] and we did discuss possible referral from Dr. Cowan to Kelly Knott NP in her office who focuses on anti- inflammatory protocols. This may benefit the patient if he is interested in possibly following up with her. As well as he could benefit from a nutrition consult. 6. The patient has been prescribed a Dulera inhaler. He was instructed to take this until his cough has resolved and to rinse his mouth out after each use. 7. He is stable for discharge to home. TIME SPENT: Approximately 60 minutes spent on this discharge. MICK MCGREGOR, SUDHEER [id number]/[place] #: [id number] NICK
[2018-06-03] MEDS ORDERED: methylPREDNISolone TAB* 4 MG PO SCH (07:30)
[2018-06-04] MEDS ORDERED: methylPREDNISolone TAB* 4 MG PO SCH (07:30)
[2018-06-05] MEDS ORDERED: methylPREDNISolone TAB* 4 MG PO SCH (07:30)
[2018-06-06] MEDS ORDERED: methylPREDNISolone TAB* 4 MG PO ONE (07:30)
== END 2018-06-02 11:45 | disposition home or self-care (01) ==
LOC: ED 19:19 → MED 06-01 00:52
PROVIDERS: ADMIT Internal Medicine; ATTEND Internal Medicine
DX: J45.901 Unspecified asthma with (acute) exacerbation (principal); J30.2 Other seasonal allergic rhinitis; Z79.899 Other long term (current) drug therapy; R09.02 Hypoxemia
CPT/HCPCS: 36415; 71046; 80053; 84145; 85025; 86140; 96374; 99284; A9270-GY; G0378; J1650; J2930; J3475; J7509

== ENCOUNTER 2018-07-04 11:46 | Emergency (ER) | payer MEDICARE, MEDICAID ==
[2018-07-04 11:51] VITALS: BP 128/75
--- NOTE | 2018-07-04 12:04 | ED ---
Throat Pain/Nasal Congestion - HPI Summary HPI Summary: Pt is a 23 y/o male who presents to the ED c/o sore throat. He states the symptoms started 2 days ago, and include sore throat, subjective fever, chills, nasal congestion, headache, wet cough, and back pain. Pt describes the sputum as dark-colored mucus and tinged with blood, and he becomes lightheaded when he coughs. His throat pain worsens with breathing and eating, and is currently rated an 8/10 in severity. Pt denies any CP, N/V, joint pain, neck pain, or ear pain. He took some Tylenol and gargled some vinegar with warm water, which helped his symptoms some. Pt began to feel better yesterday, but then started feeling worse again. He did get this seasons flu shot. PMHx asthma. He notes the heating in his house makes the air dry. - History of Current Complaint Chief Complaint: EDThroatPain Time Seen by Provider: 07/04/18 11:59 Hx Obtained From: Patient Onset/Duration: Gradual Onset, Lasting Days - 2, Worse Since Severity: Severe - 8/10 Associated Signs And Symptoms: Positive: Nasal Discharge Cough: Sputum Appears - Dark-colored mucus and bloody - Allergies/Home Medications Allergies/Adverse Reactions: Allergies Allergy/AdvReac Type Severity Reaction Status Date / Time pollen extracts Allergy Congestion Verified 05/31/18 19:35 PMH/Surg Hx/FS Hx/Imm Hx Endocrine/Hematology History: Denies: Hx Diabetes, Hx Thyroid Disease, Hx Anemia Cardiovascular History: Denies: Hx Congenital Heart Disease, Hx Hypertension Respiratory History: Reports: Hx Asthma, Other Respiratory Problems/Disorders - bronchitis Denies: Hx Chronic Obstructive Pulmonary Disease (COPD) GI History: Denies: Hx Irritable Bowel Sensory History: Denies: Hx Contacts or Glasses, Hx Hearing Aid Opthamlomology History: Denies: Hx Contacts or Glasses Neurological History: Denies: Hx Headaches, Hx Seizures Psychiatric History: Denies: Hx Anxiety - Surgical History Surgery Procedure, Year, and Place: none - Immunization History Date of Tetanus Vaccine: 2009 Date of Influenza Vaccine: fall 2015 Infectious Disease History: No Infectious Disease History: Denies: Hx of Known/Suspected MRSA, Traveled Outside the [place] in Last 30 Days - Family History Known Family History: Negative: Cardiac Disease - Social History Alcohol Use: None Hx Substance Use: No Substance Use Type: Reports: None Hx Tobacco Use: No Smoking Status (MU): Never Smoked Tobacco Review of Systems Positive: Fever, Chills Positive: Sore Throat, Nasal Discharge - Congestion. Negative: Ear Ache Negative: Chest Pain Positive: Cough - Productive Negative: Vomiting, Nausea Positive: Myalgia - Back pain, neck pain. Negative: Arthralgia Neurological: Other - Lightheadedness with coughing Positive: Headache All Other Systems Reviewed And Are Negative: Yes Physical Exam - Summary Physical Exam Summary: Appearance: Well appearing, no pain distress Skin: warm, dry, reflects adequate perfusion Head/face: normal Eyes: EOMI, EVA ENT: mucous membranes moist, mucus in nose and posterior pharynx Neck: supple, non-tender Respiratory: CTA, breath sounds slightly diminished, no rales, rhonchi, or wheezes Cardiovascular: RRR, pulses symmetrical Abdomen: non-tender, soft Bowel Sounds: present Musculoskeletal: normal, strength/ROM intact Neuro: normal, sensory motor intact, A&Ox3 Triage Information Reviewed: Yes Vital Signs On Initial Exam: Initial Vitals Temp Pulse Resp BP Pulse Ox 97.6 F 79 14 128/75 96 07/04/18 11:48 07/04/18 11:48 07/04/18 11:48 07/04/18 11:48 07/04/18 11:48 Vital Signs Reviewed: Yes Diagnostics - Vital Signs Vital Signs Temp Pulse Resp BP Pulse Ox 07/04/18 11:48 97.6 F 79 14 128/75 96 - Laboratory Lab Statement: Any lab studies that have been ordered have been reviewed, and results considered in the medical decision making process. - Radiology CXR Radiology Interpretation Completed By: Radiologist - NO ACTIVE CARDIOPULMONARY DISEASE. ED physician reviewed radiology report. EENT Course/Dx - Course Course Of Treatment: Patient with cough and cold symptoms with negative chest x- ray. No distress or fever. Treat symptomatically from bronchitis. No indication for antibiotics. - Differential Diagnoses Differential Diagnoses: Pharyngitis, URI/Bronchitis, Other - Pneumonia - Diagnoses Provider Diagnoses: Bronchitis, Cough with hemoptysis Discharge - Sign-Out/Discharge Documenting (check all that apply): Patient Departure - Discharge - Discharge Plan Condition: Improved Disposition: HOME Prescriptions: Albuterol HFA INHALER* [Ventolin HFA Inhaler*] 2 puff INH Q4H PRN #1 i PRN Reason: Sob/Wheezing Benzonatate CAP* [Tessalon 100 MG CAP*] 100 mg PO TID #20 cap Dexamethasone TAB* [Decadron TAB*] 8 mg PO DAILY #8 tab guaiFENesin ER TAB [Mucinex*] 600 mg PO BID #15 tab.er Patient Education Materials: Acute Bronchitis (ED) Forms: *Work Release Referrals: Stuart Cowan MD [Primary Care Provider] - Additional Instructions: Return with high fever, difficulty breathing, worse or other concerns. Call first thing tomorrow morning to schedule prompt follow-up with your doctor. - Billing Disposition and Condition Condition: IMPROVED Disposition: Home - Attestation Statements Document Initiated by Desean: Yes Documenting Scribe: Gloria Alicea Provider For Whom Desean is Documenting (Include Credential): Demar Zavala MD Scribe Attestation: Gloria Zarate, scribed for Demar Zavala MD on 07/04/18 at 1654. Scribe Documentation Reviewed: Yes Provider Attestation: The documentation as recorded by the Gloria krishnan accurately reflects the service I personally performed and the decisions made by me, Demar Zavala MD
== END 2018-07-04 13:11 | disposition home or self-care (01) ==
LOC: ED 11:46
DX: J40 Bronchitis, not specified as acute or chronic (principal); R04.2 Hemoptysis; J45.909 Unspecified asthma, uncomplicated
CPT/HCPCS: 71046; 99282

== ENCOUNTER 2018-09-26 15:59 | Emergency (ER) | payer MEDICARE, MEDICAID ==
[2018-09-26] MEDS ORDERED: Albuterol/Ipratropium NEB.SOL* Albuterol 2.5 MG/Ipratropium 0.5 MG 3 ML ONE ×2 (18:06)
[2018-09-26] MEDS ORDERED: Albuterol/Ipratropium NEB.SOL* Albuterol 2.5 MG/Ipratropium 0.5 MG 3 ML INH ONE ×2 (18:08→18:26)
--- NOTE | 2018-09-26 18:21 | ED ---
Asthma - HPI Summary HPI Summary: Pt is a 23 y/o male who presents to the ED c/o SOB. He states he woke up at 1: 00 this morning with SOB. Pt c/o wheezing, congestion, mild cough, and lightheadedness. He has used his inhalers and nebulizers without and relief. He reports 9/10 discomfort. He denies any congestion or fever. Pt has had three overnight stays for asthma exacerbation in the past, but never had to be intubated or admitted to the ICU. He denies use of steroids or controlled medications. - History of Current Complaint Chief Complaint: EDAsthma Stated Complaint: SOB Time Seen by Provider: 09/26/18 18:15 Hx Obtained From: Patient Onset/Duration: Lasting Hours - 1:00 this morning, Still Present Timing: Constant Current Severity: None Pain Intensity: 0 Pain Scale Used: 0-10 Numeric Location/Character: Wheezing Aggravating Symptoms: Nothing Alleviating Symptoms: Nothing Associated Signs and Symptoms: Positive: Shortness of Breath Related History: Similar Episode/Dx as - asthma - Allergy/Home Medications Allergies/Adverse Reactions: Allergies Allergy/AdvReac Type Severity Reaction Status Date / Time pollen extracts Allergy Congestion Verified 09/26/18 16:01 PMH/Surg Hx/FS Hx/Imm Hx Endocrine/Hematology History: Denies: Hx Diabetes, Hx Thyroid Disease, Hx Anemia Cardiovascular History: Denies: Hx Congenital Heart Disease, Hx Hypertension Respiratory History: Reports: Hx Asthma, Other Respiratory Problems/Disorders - bronchitis Denies: Hx Chronic Obstructive Pulmonary Disease (COPD) GI History: Denies: Hx Irritable Bowel Sensory History: Denies: Hx Contacts or Glasses, Hx Hearing Aid Opthamlomology History: Denies: Hx Contacts or Glasses Neurological History: Denies: Hx Headaches, Hx Seizures Psychiatric History: Denies: Hx Anxiety - Surgical History Surgery Procedure, Year, and Place: none - Immunization History Date of Tetanus Vaccine: 2009 Date of Influenza Vaccine: 2018 Infectious Disease History: No Infectious Disease History: Denies: Hx of Known/Suspected MRSA, Traveled Outside the [place] in Last 30 Days - Family History Known Family History: Negative: Cardiac Disease - Social History Alcohol Use: None Hx Substance Use: No Substance Use Type: Reports: None Hx Tobacco Use: No Smoking Status (MU): Never Smoked Tobacco Review of Systems Negative: Fever Negative: Other - congestion Positive: Shortness Of Breath, Cough, Other - wheezing Neurological: Other - Lightheadedness All Other Systems Reviewed And Are Negative: Yes Physical Exam - Summary Physical Exam Summary: Appearance: Well appearing, no pain distress Skin: warm, dry, reflects adequate perfusion Head/face: normal Eyes: EOMI, EVA ENT: mucous membranes moist Neck: supple, non-tender Respiratory: diffuse expiratory wheezes, no respiratory distress, no rales or rhonchi, work of breathing is normal Cardiovascular: tachycardic but regular rhythm, pulses symmetrical Abdomen: non-tender, soft Bowel Sounds: present Musculoskeletal: normal, strength/ROM intact Neuro: normal, sensory motor intact, A&Ox3 Triage Information Reviewed: Yes Vital Signs On Initial Exam: Initial Vitals Temp Pulse Resp BP Pulse Ox 97.8 F 108 18 137/78 93 09/26/18 16:01 09/26/18 16:01 09/26/18 16:01 09/26/18 16:01 09/26/18 16:01 Vital Signs Reviewed: Yes Diagnostics - Vital Signs Vital Signs Temp Pulse Resp BP Pulse Ox 09/26/18 17:55 97 F 103 22 81/59 94 09/26/18 16:01 97.8 F 108 18 137/78 93 - Laboratory Lab Statement: Any lab studies that have been ordered have been reviewed, and results considered in the medical decision making process. Re-Evaluation - Re-Evaluation First Eval Re-Evaluation Time: 19:15 Change: Improved Comment: Pt feels better, but still has some mild wheezes. Asthma Course/Dx - Course Course Of Treatment: Nurse's notes are reviewed. Patient with history of asthma requiring hospitalization 3 in the past. Never intubated or to the ICU. Received 3 breathing treatments with improvement. He was walked about the ER without dyspnea. He was given oral steroids which she will continue outpatient. He was also given an inhaler here. Following his course of steroids he will start on oral inhaled steroid. He was discharged in improved condition but does have some mild wheezes still present. - Diagnoses Differential Diagnosis/HQI/PQRI: Positive: Acute Asthma, COPD Excerbation, Reactive Airway Disease Provider Diagnoses: Acute asthma exacerbation - Critical Care Time Critical Care Time: 30-74 min - Critical care time is exclusive of separately billable procedures Discharge - Sign-Out/Discharge Documenting (check all that apply): Patient Departure - Discharge Patient Received Moderate/Deep Sedation with Procedure: No - Discharge Plan Condition: Stable Disposition: HOME Prescriptions: Albuterol HFA INHALER* [Ventolin HFA Inhaler*] 2 puff INH Q4H PRN #1 mdi PRN Reason: Sob/Wheezing Fluticasone DISKUS 250 MCG(NF) [Flovent Diskus 250 MCG(NF)] 1 puff INH BID #1 diskus predniSONE TAB* [Deltasone TAB*] 50 mg PO DAILY #5 tab Patient Education Materials: Asthma (ED) Forms: *Work Release Referrals: Stuart Cowan MD [Primary Care Provider] - Additional Instructions: Use breathing treatments every 4 hours until well. Call your doctor first thing in the morning to schedule prompt follow-up. Return with difficulty breathing, fever, worse, new symptoms or other concerns. - Billing Disposition and Condition Condition: STABLE Disposition: Home - Attestation Statements Document Initiated by Namanibe: Yes Documenting Scribe: Gloria Alicea Provider For Whom Toshiae is Documenting (Include Credential): Demar Zavala MD Scribe Attestation: Gloria Zarate, scribed for Demar Zavala MD on 09/26/18 at 2129. Scribe Documentation Reviewed: Yes Provider Attestation: The documentation as recorded by the Gloria krishnan accurately reflects the service I personally performed and the decisions made by , Demar Zavala MD Status of Scribe Document: Viewed
[2018-09-26] MEDS ORDERED: predniSONE TAB* 20 MG PO ONE (18:26)
[2018-09-26] MEDS ORDERED: Albuterol HFA INHALER* 8 gm MDI INH ONE ×2 (19:23)
[2018-09-26 19:59] VITALS: BP 132/78
== END 2018-09-26 19:59 | disposition home or self-care (01) ==
LOC: ED 15:59
DX: J45.901 Unspecified asthma with (acute) exacerbation (principal); R06.02 Shortness of breath; R06.2 Wheezing; R05 Cough; R42 Dizziness and giddiness
CPT/HCPCS: 99283; A9270-GY; J7512

== ENCOUNTER 2019-02-06 08:30 | Emergency (ER) | payer MEDICARE, MEDICAID ==
[2019-02-06] MEDS ORDERED: methylPREDNISolone 125 MG* 2 ML VIAL IV ONE (08:43)
[2019-02-06] MEDS ORDERED: NS 0.9% 1000 ML** 1,000 ML IV ONE (08:43)
--- NOTE | 2019-02-06 08:47 | ED ---
Shortness of Breath - HPI Summary HPI Summary: The patient is a 23 y/o M presenting to [facility] with a chief complaint of sudden onset SOB starting around [id number] last night. He reports that he knew that he was having an asthma exacerbation because he started to be slow at work yesterday, and he also had difficulty sleeping last night. His symptoms also include CP secondary to the SOB, wheezing, nonproductive cough, and a headache. He denies fever. The pain is currently rated 4/10 in severity. Hx of asthma but doesn't have medications. Nonsmoker, no EtOH, no substance use. 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: Cough (Nonproductive), Wheezing, Chest Pain w/Cough - Allergy/Home Medications Allergies/Adverse Reactions: Allergies Allergy/AdvReac Type Severity Reaction Status Date / Time pollen extracts Allergy Congestion Verified 02/06/19 08:36 Home Medications: Home Medications Duoneb (Albuterol 2.5 MG/Ipratropium 0.5 MG) 1 dose INH Q4H PRN 02/06/19 [ History Confirmed 02/06/19] PMH/Surg Hx/FS Hx/Imm Hx Endocrine/Hematology History: Denies: Hx Diabetes, Hx Thyroid Disease, Hx Anemia Cardiovascular History: Denies: Hx Congenital Heart Disease, Hx Hypertension Respiratory History: Reports: Hx Asthma, Other Respiratory Problems/Disorders - bronchitis Denies: Hx Chronic Obstructive Pulmonary Disease (COPD) GI History: Denies: Hx Irritable Bowel Sensory History: Denies: Hx Contacts or Glasses, Hx Hearing Aid Opthamlomology History: Denies: Hx Contacts or Glasses Neurological History: Denies: Hx Headaches, Hx Seizures Psychiatric History: Denies: Hx Anxiety - Surgical History Surgery Procedure, Year, and Place: none - Immunization History Date of Tetanus Vaccine: 2009 Date of Influenza Vaccine: 2019 Infectious Disease History: No Infectious Disease History: Denies: Hx of Known/Suspected MRSA, Traveled Outside the [place] in Last 30 Days - Family History Known Family History: Negative: Cardiac Disease, Hypertension, Diabetes - Social History Alcohol Use: None Hx Substance Use: No Substance Use Type: Reports: None Hx Tobacco Use: No Smoking Status (MU): Never Smoked Tobacco Do You Chew or Dip Tobacco: No Have You Chewed or Dipped Tobacco in the LAST YEAR: No Have You Smoked in the Last Year: No Review of Systems Positive: Other - difficulty sleeping. Negative: Fever Positive: Chest Pain - secondary to SOB Positive: Shortness Of Breath, Cough - nonproductive, Other - wheezing Positive: Headache All Other Systems Reviewed And Are Negative: Yes Physical Exam - Summary Physical Exam Summary: VITAL SIGNS: Reviewed. GENERAL: Patient is a well-developed and nourished male who is lying comfortable in the stretcher. Patient is not in any acute respiratory distress. HEAD AND FACE: No signs of trauma. No ecchymosis, hematomas or skull depressions. No sinus tenderness. EYES: PERRLA, EOMI x 2, No injected conjunctiva, no nystagmus. EARS: Hearing grossly intact. Ear canals and tympanic membranes are within normal limits. MOUTH: Oropharynx within normal limits. NECK: Supple, trachea is midline, no adenopathy, no JVD, no carotid bruit, no c- spine tenderness, neck with full ROM. CHEST: Symmetric, no tenderness at palpation LUNGS: Diffuse wheezing. No crackles. CVS: Regular rate and rhythm, S1 and S2 present, no murmurs or gallops appreciated. ABDOMEN: Soft, non-tender. No signs of distention. No rebound no guarding, and no masses palpated. Bowel sounds are normal. EXTREMITIES: FROM in all major joints, no edema, no cyanosis or clubbing. NEURO: Alert and oriented x 3. No acute neurological deficits. Speech is normal and follows commands. SKIN: Dry and warm. Triage Information Reviewed: Yes Vital Signs On Initial Exam: Initial Vitals Temp Pulse Resp BP Pulse Ox 97.4 F 91 18 141/88 93 02/06/19 08:31 02/06/19 08:31 02/06/19 08:31 02/06/19 08:31 02/06/19 08:31 Vital Signs Reviewed: Yes Diagnostics - Vital Signs Vital Signs Temp Pulse Resp BP Pulse Ox 02/06/19 08:31 97.4 F 91 18 141/88 93 - Laboratory Result Diagrams: 02/06/19 09:03 02/06/19 09:03 Lab Statement: Any lab studies that have been ordered have been reviewed, and results considered in the medical decision making process. - Radiology CXR Radiology Interpretation Completed By: Radiologist Summary of Radiographic Findings: No active cardiopulmonary disease. ED physician has reviewed this report. - EKG 0848 Cardiac Rate: NL - 85 BPM EKG Rhythm: Sinus Rhythm Summary of EKG Findings: No ST elevations. Re-Evaluation - Re-Evaluation First Eval Re-Evaluation Time: 11:45 Change: Improved Comment: The patient is feeling much better. We discussed discharge. Course/Dx - Course Assessment/Plan: The patient is a 23 y/o M presenting to [facility] with a chief complaint of sudden onset SOB starting around [id number] last night. He reports that he knew that he was having an asthma exacerbation because he started to be slow at work yesterday, and he also had difficulty sleeping last night. His symptoms also include CP secondary to the SOB, wheezing, nonproductive cough, and a headache. He denies fever. The pain is currently rated 4/10 in severity. Hx of asthma but doesn't have medications. Nonsmoker, no EtOH, no substance use. Blood test results without any significant abnormality except for WBCs of 11.1, glucose of 120, alkaline phosphatase of 114, and urinalysis is negative for UTI. Chest x-ray impression: No active cardiopulmonary disease. In the ED course, the patient was given DuoNebs and Solu-Medrol. After these medications, the patients symptoms have significantly improved. The patient is feeling much better. Reexamination of the lungs: Clear to auscultation bilaterally. Therefore, at this point the patient was discharged home with follow-up with PCP. I discussed all the findings and test results with the patient. Patient was instructed to return to the emergency room immediately if any of the symptoms return or worsens. Plan of care was discussed with the patient and understands and agrees. All questions were answered at patient satisfaction. There were no further complaints or concerns. Lung exam before discharge: CTA B/ L. Good air exchange. No wheezing or crackles heard. CVS: S1 and S2 present. No murmurs appreciated. Patient is alert and oriented x 3. Patient is hemodynamically stable. 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 - Diagnoses Provider Diagnoses: Asthma exacerbation Discharge - Sign-Out/Discharge Documenting (check all that apply): Patient Departure - Patient will be discharged home. Patient Received Moderate/Deep Sedation with Procedure: No - Discharge Plan Condition: Stable Disposition: HOME Prescriptions: Albuterol HFA INHALER* [Ventolin HFA Inhaler*] 2 puff INH Q4H PRN #1 mdi PRN Reason: Sob/Wheezing predniSONE [Prednisone 20 MG TAB] 20 mg PO DAILY #8 tablet Patient Education Materials: Asthma (DC) Forms: *Work Release Referrals: Stuart Cowan MD [Primary Care Provider] - 3 Days Additional Instructions: Please take medications as prescribed. Follow up with your primary care provider in 2-3 days. RETURN TO THE EMERGENCY DEPARTMENT FOR ANY NEW OR WORSENING SYMPTOMS. - Billing Disposition and Condition Condition: STABLE Disposition: Home - Attestation Statements Document Initiated by Desean: Yes Documenting Scribe: Chelly Davila Provider For Whom Desean is Documenting (Include Credential): Dr. Delbert Cosme MD Scribe Attestation: Chelly Zarate scribed for Dr. Delbert Cosme MD on 02/06/19 at 1722. Scribe Documentation Reviewed: Yes Provider Attestation: The documentation as recorded by the Chelly krishnan accurately reflects the service I personally performed and the decisions made by me, Dr. Delbert Cosme MD Status of Scribsimeon Document: Ready
[2019-02-06] MEDS: Albuterol/Ipratropium NEB.SOL* Albuterol 2.5 MG/Ipratropium 0.5 MG 3 ML INH SCH ×3 (08:54→10:02)
[2019-02-06 09:40] LABS: ABS Basophils 0.1 10^3/ul (0-0.2); ABS Eosinophils 0.9 10^3/ul (0-0.6); ABS Lymphocytes 1.7 10^3/ul (1.0-4.8); ABS Monocytes 0.6 10^3/ul (0-0.8); ABS Neutrophils 7.8 10^3/ul (1.5-7.7); Eosinophil % 8.5 %; Hematocrit 44 % (42-52); Hemoglobin 14.7 g/dL (14.0-18.0); Mean Corpuscular HGB Conc 33 g/dL (31-36); Mean Corpuscular Hemoglobin 27 pg (27-31); Mean Corpuscular Volume 79 fL (80-94); Mean Platelet Volume 7.9 fL (7.4-10.4); Platelet Count 252 10^3/uL (150-450); Red Blood Count 5.56 10^6 /uL (4.18-5.48); Red Cell Distribution Width 14 % (10-15); White Blood Count 11.1 10^3/uL (3.5-10.8)
[2019-02-06 09:55] LABS: Albumin 4.4 g/dL (3.2-5.2); Calcium 9.7 mg/dL (8.6-10.3); Total Bilirubin 0.6 mg/dL (0.2-1.0)
[2019-02-06 10:01] LABS: Albumin/Globulin Ratio 1.6 (1-3); BUN/Creatinine Ratio 12.3 (8-20); C Reactive Protein 2.97 mg/L (<8.01); EGFR African American 106.7 (>60); EGFR Non-African American 88.2 (>60); Globulin 2.8 g/dL (2-4); Total Protein 7.2 g/dL (6.4-8.9)
[2019-02-06 10:58] LABS: Urine Appearance Clear; Urine Bilirubin Negative (Negative); Urine Blood Negative (Negative); Urine Color Straw; Urine Glucose 1+(50 mg/dL) (Negative); Urine Ketones Negative (Negative); Urine Nitrite Negative (Negative); Urine Protein Negative (Negative); Urine Specific Gravity 1.008 (1.010-1.030); Urine Urobilinogen Negative (Negative)
[2019-02-06 12:03] VITALS: BP 130/64
== END 2019-02-06 12:02 | disposition home or self-care (01) ==
LOC: ED 08:30
DX: J45.901 Unspecified asthma with (acute) exacerbation (principal); R07.89 Other chest pain
CPT/HCPCS: 36415; 71046; 80053; 81003; 83605; 84484; 85025; 86140; 87040; 93005; 96361; 96374; 99282; A9270-GY; J2930

== ENCOUNTER 2020-11-13 21:14 | Inpatient (IN) ==
[2020-11-13] MEDS ORDERED: Dexamethasone IV 4 MG/ML VIAL 1 ml VIAL IV SLOW PU ONE (22:22)
[2020-11-13] MEDS ORDERED: Albuterol HFA INHALER 8 gm MDI INH ONE (22:24)
[2020-11-13 23:25] LABS: ABS Eosinophils 0.4 10^3/ul (0-0.6); ABS Lymphocytes 1.5 10^3/ul (1.0-4.8); ABS Monocytes 1.2 10^3/ul (0-0.8); ABS Neutrophils 14.1 10^3/ul (1.5-7.7); Eosinophil % 2.5 %; Hematocrit 48 % (42-52); Hemoglobin 16.1 g/dL (14.0-18.0); Lymphocyte % 8.9 %; Mean Corpuscular HGB Conc 34 g/dL (31-36); Mean Corpuscular Hemoglobin 27 pg (27-31); Mean Corpuscular Volume 80 fL (80-94); Mean Platelet Volume 7.8 fL (7.4-10.4); Platelet Count 253 10^3/uL (150-450); Red Blood Count 5.93 10^6 /uL (4.18-5.48); Red Cell Distribution Width 14 % (10-15); White Blood Count 17.3 10^3/uL (3.5-10.8)
[2020-11-13 23:32] LABS: Activated Partial Thrombo Time 56.2 seconds (26.0-38.0); INR 1.13 (0.82-1.09)
[2020-11-13 23:41] LABS: LDH 319 U/L (140-271)
[2020-11-13 23:42] LABS: ALT 68 U/L (7-52); AST 48 U/L (13-39); Albumin/Globulin Ratio 1.4 (1-3); Alkaline Phosphatase 115 U/L (34-104); Anion Gap 11 mmol/L (2-11); BUN/Creatinine Ratio 6.1 (8-20); Blood Urea Nitrogen 7 mg/dL (6-24); C Reactive Protein 6.21 mg/L (<8.01); CO2 Carbon Dioxide 28 mmol/L (22-32); Calcium 9.8 mg/dL (8.6-10.3); Chloride 98 mmol/L (101-111); EGFR African American 95.4 (>60); EGFR Non-African American 78.8 (>60); Globulin 3.5 g/dL (2-4); Glucose 106 mg/dL (70-100); Potassium 3.4 mmol/L (3.5-5.0); Sodium 137 mmol/L (135-145); Total Protein 8.5 g/dL (6.4-8.9)
[2020-11-13] MEDS ORDERED: NS 0.9% 1000 ml BAG 1,000 ML IV.FLUID IV ONE (23:50)
[2020-11-13] MEDS ORDERED: cefTRIAXone 1 gm/50 mL NS BAG 1 GM/50 ML BAG IV ONE (23:50)
[2020-11-13] MEDS ORDERED: Azithromycin 500 mg/250 ml NS 500 MG/250 ML BAG IVPB ONE (23:50)
[2020-11-13 23:54] LABS: Influenza A Molecular Negative (Negative); Influenza B Molecular Negative (Negative)
[2020-11-14] MEDS ORDERED: Ondansetron 4 mg VIAL 2 MG/ML 2 ml VIAL IV ONE (00:23)
[2020-11-14] MEDS ORDERED: Ondansetron 4 mg VIAL 2 MG/ML 2 ml VIAL ONE (00:24)
[2020-11-14 01:15] LABS: Troponin I < 0.01 ng/mL (<=0.02)
[2020-11-14] MEDS ORDERED: Ondansetron 4 mg VIAL 2 MG/ML 2 ml VIAL IV PRN (01:32)
[2020-11-14] MEDS ORDERED: Albuterol/Ipratropium NEB.SOL (2.5/0.5 MG) 3 ML NEB.SOLN INH PRN (01:38)
[2020-11-14] MEDS ORDERED: Albuterol HFA INHALER 8 gm MDI INH SCH (02:00)
[2020-11-14] MEDS ORDERED: Albuterol HFA INHALER 8 gm MDI INH PRN (02:04)
[2020-11-14] MEDS ORDERED: Potassium Chlor 20 meq TAB.ER PO ONE (04:11)
[2020-11-14] MEDS ORDERED: NS 0.9% 1000 ml BAG 1,000 ML IV SCH (04:15)
[2020-11-14 04:57] LABS: Urine Appearance Clear; Urine Bacteria Absent (Absent); Urine Bilirubin Negative (Negative); Urine Blood Negative (Negative); Urine Color Yellow; Urine Glucose 1+(50 mg/dL) (Negative); Urine Ketones Negative (Negative); Urine Nitrite Negative (Negative); Urine Protein Negative (Negative); Urine Red Blood Cell Absent (Absent); Urine Urobilinogen Negative (Negative); Urine White Blood Cell Absent (Absent)
[2020-11-14 08:02] LABS: ABS Lymphocytes 0.8 10^3/ul (1.0-4.8); ABS Monocytes 0.5 10^3/ul (0-0.8); ABS Neutrophils 11.9 10^3/ul (1.5-7.7); Eosinophil % 0.2 %; Hematocrit 41 % (42-52); Hemoglobin 13.6 g/dL (14.0-18.0); Lymphocyte % 5.9 %; Mean Corpuscular HGB Conc 33 g/dL (31-36); Mean Corpuscular Hemoglobin 27 pg (27-31); Mean Corpuscular Volume 82 fL (80-94); Mean Platelet Volume 7.7 fL (7.4-10.4); Platelet Count 225 10^3/uL (150-450); Red Blood Count 5.06 10^6 /uL (4.18-5.48); Red Cell Distribution Width 14 % (10-15); White Blood Count 13.3 10^3/uL (3.5-10.8)
[2020-11-14 08:15] LABS: Albumin 4.3 g/dL (3.2-5.2); Albumin/Globulin Ratio 1.5 (1-3); Calcium 8.9 mg/dL (8.6-10.3); EGFR Non-African American 92.6 (>60); Globulin 2.8 g/dL (2-4); Potassium 4.2 mmol/L (3.5-5.0); Total Bilirubin 0.5 mg/dL (0.2-1.0); Total Protein 7.1 g/dL (6.4-8.9)
[2020-11-14 14:26] LABS: Ferritin 94.1 ng/mL (24-336)
[2020-11-14] MEDS: Albuterol/Ipratropium NEB.SOL (2.5/0.5 MG) 3 ML NEB.SOLN INH PRN ×2 (16:32→19:12)
[2020-11-14] MEDS ORDERED: Mometasone 220 MCG MDI INH SCH (18:00)
[2020-11-14] MEDS ORDERED: cefTRIAXone 1 gm/50 mL NS BAG 1 GM/50 ML BAG IVPB SCH (23:30)
[2020-11-15] MEDS: Albuterol/Ipratropium NEB.SOL (2.5/0.5 MG) 3 ML NEB.SOLN INH PRN ×3 (00:29→12:18)
[2020-11-15 05:36] LABS: ABS Eosinophils 0.2 10^3/ul (0-0.6); ABS Lymphocytes 2.2 10^3/ul (1.0-4.8); ABS Monocytes 1.1 10^3/ul (0-0.8); ABS Neutrophils 9.1 10^3/ul (1.5-7.7); Eosinophil % 1.8 %; Hematocrit 39 % (42-52); Hemoglobin 12.8 g/dL (14.0-18.0); Lymphocyte % 17.2 %; Mean Corpuscular HGB Conc 33 g/dL (31-36); Mean Corpuscular Hemoglobin 27 pg (27-31); Mean Corpuscular Volume 81 fL (80-94); Mean Platelet Volume 8.1 fL (7.4-10.4); Platelet Count 213 10^3/uL (150-450); Red Blood Count 4.75 10^6 /uL (4.18-5.48); Red Cell Distribution Width 14 % (10-15); White Blood Count 12.7 10^3/uL (3.5-10.8)
[2020-11-15 05:55] LABS: BUN/Creatinine Ratio 14.5 (8-20); Calcium 8.9 mg/dL (8.6-10.3); EGFR African American 138.9 (>60); EGFR Non-African American 114.8 (>60); Potassium 3.4 mmol/L (3.5-5.0)
[2020-11-15] MEDS ORDERED: Potassium Chlor 20 meq TAB.ER PO ONE (08:52)
[2020-11-15] MEDS ORDERED: Azithromycin 500 mg/250 ml NS 500 MG/250 ML BAG IVPB SCH ×2 (09:00)
[2020-11-15 09:10] LABS: Magnesium 1.8 mg/dL (1.9-2.7)
[2020-11-15 11:56] VITALS: BP 129/75
== END 2020-11-15 13:45 | disposition home or self-care (01) | DRG 871 ==
LOC: ED 21:14 → MED 11-14 01:32
PROVIDERS: ADMIT Internal Medicine; ATTEND Internal Medicine

== ENCOUNTER 2021-11-21 09:29 | Observation (INO) ==
[2021-11-21] MEDS ORDERED: Azithromycin 500 mg/250 ml NS 500 MG/250 ML BAG IVPB ONE (09:59)
[2021-11-21] MEDS ORDERED: cefTRIAXone 1 gm/50 mL D5W 1 GM/50 ML BAG IV ONE (09:59)
[2021-11-21] MEDS ORDERED: Lactated Ringers 1000 ml BAG IV.FLUID IV ONE (09:59)
[2021-11-21] MEDS ORDERED: Albuterol HFA INHALER 8 gm MDI INH ONE (10:10)
[2021-11-21 10:32] LABS: Venous Bicarbonate HCO3 25.9 mmol/L (24-28)
[2021-11-21 10:34] LABS: ABS Eosinophils 0.1 10^3/ul (0-0.6); ABS Lymphocytes 0.8 10^3/ul (1.0-4.8); ABS Monocytes 0.8 10^3/ul (0-0.8); ABS Neutrophils 13.2 10^3/ul (1.5-7.7); Eosinophil % 0.5 %; Hematocrit 47 % (42-52); Hemoglobin 15.6 g/dL (14.0-18.0); Lymphocyte % 5.4 %; Mean Corpuscular HGB Conc 33 g/dL (31-36); Mean Corpuscular Hemoglobin 27 pg (27-31); Mean Corpuscular Volume 80 fL (80-94); Nucleated Red Blood Cells % 0.1; Platelet Count 277 10^3/uL (150-450); Red Blood Count 5.88 10^6 /uL (4.18-5.48); Red Cell Distribution Width 14 % (10-15); White Blood Count 14.9 10^3/uL (3.5-10.8)
[2021-11-21] MEDS: Albuterol HFA INHALER 8 gm MDI INH ONE ×2 (10:46→18:00)
[2021-11-21 11:09] LABS: Activated Partial Thrombo Time 43.4 seconds (26.0-38.0)
[2021-11-21 11:16] LABS: Albumin 4.9 g/dL (3.2-5.2); Albumin/Globulin Ratio 1.8 (1-3); C Reactive Protein 7.24 mg/L (<8.01); Globulin 2.8 g/dL (2-4); Potassium 4.2 mmol/L (3.5-5.0); Total Bilirubin 0.5 mg/dL (0.2-1.0); Total Protein 7.7 g/dL (6.4-8.9); eGFR CKD-EPI 106.5 (>60)
[2021-11-21] MEDS ORDERED: Albuterol 2.5mg/3 ml (0.083%) NEB.SOLN INH ONE ×2 (11:30→11:31)
[2021-11-21] MEDS ORDERED: Magnesium Sulfate IV 1GM/100ML 1 GM/100 ML BAG IV ONE (11:37)
[2021-11-21 11:53] LABS: High Sensitivity Troponin 1 Hr 14 pg/mL (<20)
[2021-11-21] MEDS ORDERED: methylPREDNISolone 125 mg 2 ML VIAL IV ONE (12:08)
[2021-11-21] MEDS ORDERED: Albuterol/Ipratropium NEB.SOL (2.5/0.5 MG) 3 ML NEB.SOLN INH ONE ×3 (12:12)
[2021-11-21] MEDS ORDERED: Ondansetron 4 mg VIAL 2 MG/ML 2 ml VIAL IV ONE (12:19)
[2021-11-21] MEDS ORDERED: Lactated Ringers 1000 ml BAG 1,000 ML IV ONE (12:36)
[2021-11-21] MEDS ORDERED: Benzocaine/Menthol LOZ MT PRN (14:21)
[2021-11-21] MEDS ORDERED: Albuterol 2.5mg/3 ml (0.083%) NEB.SOLN INH PRN (14:21)
[2021-11-21] MEDS ORDERED: Ondansetron 4 mg VIAL 2 MG/ML 2 ml VIAL IV PRN (14:21)
[2021-11-21] MEDS ORDERED: Iohexol 300 (CONTRAST) 10 ML SDV IV ONE (14:43)
[2021-11-21 14:49] LABS: Urine Appearance Clear; Urine Bilirubin Negative (Negative); Urine Blood 1+ (Negative); Urine Color Straw; Urine Glucose Negative (Negative); Urine Ketones Negative (Negative); Urine Nitrite Negative (Negative); Urine Protein Negative (Negative); Urine Specific Gravity 1.005 (1.002-1.030); Urine Urobilinogen Negative (Negative)
[2021-11-21] MEDS: Albuterol/Ipratropium NEB.SOL (2.5/0.5 MG) 3 ML NEB.SOLN INH SCH ×2 (14:54→19:10)
[2021-11-21 14:57] LABS: Urine Bacteria Absent (Absent); Urine Red Blood Cell Absent (Absent); Urine White Blood Cell Absent (Absent)
[2021-11-21 16:32] LABS: Rapid Strep Molecular Negative (Negative)
[2021-11-21] MEDS ORDERED: Piperacillin/Tazobac ADVAN 3.375 GM in NS 0.9% 100 ml BAG 100 ML IV ONE (17:11)
[2021-11-21] MEDS ORDERED: Pantoprazole VIAL 40 MG VIAL IV SCH (18:00)
[2021-11-21] MEDS ORDERED: Lactated Ringers 1000 ml BAG 1,000 ML IV SCH (18:00)
[2021-11-21] MEDS ORDERED: Zosyn per Pharmacy NOTE FOLLOW UP SCH (18:00)
[2021-11-21 18:13] LABS: ABS Lymphocytes 0.6 10^3/ul (1.0-4.8); ABS Monocytes 0.1 10^3/ul (0-0.8); ABS Neutrophils 14.2 10^3/ul (1.5-7.7); Eosinophil % 0.1 %; Hematocrit 43 % (42-52); Hemoglobin 14.6 g/dL (14.0-18.0); Lymphocyte % 4.2 %; Mean Corpuscular HGB Conc 34 g/dL (31-36); Mean Corpuscular Hemoglobin 27 pg (27-31); Mean Corpuscular Volume 80 fL (80-94); Mean Platelet Volume 7.8 fL (7.4-10.4); Platelet Count 252 10^3/uL (150-450); Red Blood Count 5.41 10^6 /uL (4.18-5.48); Red Cell Distribution Width 14 % (10-15)
[2021-11-21 18:45] LABS: Albumin 4.7 g/dL (3.2-5.2); Albumin/Globulin Ratio 1.8 (1-3); Calcium 9.9 mg/dL (8.6-10.3); Globulin 2.6 g/dL (2-4); Potassium 4.5 mmol/L (3.5-5.0); Total Bilirubin 0.4 mg/dL (0.2-1.0); Total Protein 7.3 g/dL (6.4-8.9); eGFR CKD-EPI 99.4 (>60)
[2021-11-21] MEDS ORDERED: Lorazepam PYXIS KEY PRN (18:47)
[2021-11-21] MEDS ORDERED: LORazepam 2 mg VIAL 1 ml IV PUSH PRN (18:47)
[2021-11-21] MEDS ORDERED: Vancomycin per Pharmacy 1 EA NOTE FOLLOW UP SCH (19:00)
[2021-11-21] MEDS ORDERED: Vancomycin 1,500 MG in NS 0.9% 250 ml 250 ML IVPB ONE (19:30)
[2021-11-21] MEDS ORDERED: Ondansetron 4 mg VIAL 2 MG/ML 2 ml VIAL IV SCH (20:00)
[2021-11-21] MEDS ORDERED: Morphine 2 MG/ML SYRINGE IV SCH (20:00)
[2021-11-21] MEDS ORDERED: methylPREDNISolone 125 mg 2 ML VIAL IV SCH (20:00)
[2021-11-21] MEDS ORDERED: Benzocaine/Menthol LOZ PO PRN (20:15)
[2021-11-21 20:18] VITALS: BP 105/81
[2021-11-22] MEDS ORDERED: ZOSYN 3.375 GM Q8H per EXTENDED INFUSION IV SCH
[2021-11-22] MEDS ORDERED: cefTRIAXone 2 GM ADDV.VIAL 2 GM in NS 0.9% 100 ml BAG 100 ML IV SCH (11:00)
[2021-11-24 11:55] LABS: EBV Capsid Ag IgG Ab Positive (Negative); EBV Capsid Ag IgM Ab Negative (Negative); Epstein-Barr Nuclear Antigen Positive (Negative)
== END 2021-11-21 21:00 | disposition home or self-care (01) ==
LOC: ED 09:29 → EDHOLD 09:29 → MED 16:45 → ICU 19:15
PROVIDERS: ADMIT Hospitalist; ATTEND Hospitalist

== ENCOUNTER 2022-10-11 13:20 | Observation (INO) ==
[2022-10-11] MEDS ORDERED: Albuterol/Ipratropium NEB.SOL (2.5/0.5 MG) 3 ML NEB.SOLN INH ONE ×2 (13:26→16:12)
[2022-10-11] MEDS ORDERED: methylPREDNISolone SOD SUCC 125 mg 2 ML VIAL IV ONE (13:26)
[2022-10-11] MEDS ORDERED: Magnesium Sulfate 2 gm BAG 2 GM/50 ML BAG IVPB ONE (13:26)
[2022-10-11] MEDS ORDERED: Albuterol/Ipratropium NEB.SOL (2.5/0.5 MG) 3 ML NEB.SOLN ONE (13:35)
[2022-10-11] MEDS ORDERED: Lactated Ringers 1000 ml BAG 1,000 ML IV ONE (15:04)
[2022-10-11] MEDS ORDERED: Ondansetron 4 mg VIAL 2 MG/ML 2 ml VIAL IV PRN (17:17)
[2022-10-11 17:28] LABS: ABS Lymphocytes 0.3 10^3/ul (1.0-4.8); ABS Monocytes 0.1 10^3/ul (0-0.8); ABS Neutrophils 15.5 10^3/ul (1.5-7.7); Eosinophil % 0.1 %; Hematocrit 42 % (42-52); Hemoglobin 13.5 g/dL (14.0-18.0); Lymphocyte % 2.1 %; Mean Corpuscular HGB Conc 32 g/dL (31-36); Mean Corpuscular Hemoglobin 26 pg (27-31); Mean Corpuscular Volume 80 fL (80-94); Mean Platelet Volume 7.8 fL (7.4-10.4); Platelet Count 243 10^3/uL (150-450); Red Blood Count 5.25 10^6 /uL (4.18-5.48); Red Cell Distribution Width 14 % (10-15)
[2022-10-11] MEDS ORDERED: methylPREDNISolone SOD SUCC 40 mg/ml 1 ml VIAL IM SCH (18:00)
[2022-10-11 18:17] LABS: Albumin 4.4 g/dL (3.2-5.2); Albumin/Globulin Ratio 1.7 (1-3); Calcium 9.6 mg/dL (8.6-10.3); Creatinine, Serum 0.97 mg/dL (0.67-1.17); Globulin 2.6 g/dL (2-4); Potassium 3.7 mmol/L (3.5-5.0); Total Bilirubin 0.6 mg/dL (0.2-1.0); eGFR CKD-EPI 111.1 (>60)
[2022-10-11] MEDS: Albuterol/Ipratropium NEB.SOL (2.5/0.5 MG) 3 ML NEB.SOLN INH SCH (20:45)
[2022-10-11] MEDS: methylPREDNISolone SOD SUCC 40 mg/ml 1 ml VIAL IV SCH (21:10)
[2022-10-11] MEDS: Mometasone/Formoter 200/5 MDI INH SCH (21:33)
[2022-10-12] MEDS: methylPREDNISolone SOD SUCC 40 mg/ml 1 ml VIAL IV SCH ×2 (05:16→13:46)
[2022-10-12] MEDS: Albuterol 2.5mg/3 ml (0.083%) NEB.SOLN INH PRN ×2 (05:36→11:25)
[2022-10-12 07:34] LABS: ABS Lymphocytes 0.9 10^3/ul (1.0-4.8); ABS Monocytes 0.3 10^3/ul (0-0.8); ABS Neutrophils 10.4 10^3/ul (1.5-7.7); Hematocrit 42 % (42-52); Hemoglobin 13.6 g/dL (14.0-18.0); Lymphocyte % 7.7 %; Mean Corpuscular HGB Conc 33 g/dL (31-36); Mean Corpuscular Hemoglobin 27 pg (27-31); Mean Corpuscular Volume 81 fL (80-94); Mean Platelet Volume 8.2 fL (7.4-10.4); Platelet Count 245 10^3/uL (150-450); Red Blood Count 5.12 10^6 /uL (4.18-5.48); Red Cell Distribution Width 14 % (10-15); White Blood Count 11.6 10^3/uL (3.5-10.8)
[2022-10-12 07:45] LABS: Calcium 9.4 mg/dL (8.6-10.3); Creatinine, Serum 0.92 mg/dL (0.67-1.17); Magnesium 1.9 mg/dL (1.9-2.7); Potassium 3.8 mmol/L (3.5-5.0); eGFR CKD-EPI 118.4 (>60)
[2022-10-12] MEDS: Albuterol/Ipratropium NEB.SOL (2.5/0.5 MG) 3 ML NEB.SOLN INH SCH ×3 (08:12→14:50)
[2022-10-12] MEDS: Mometasone/Formoter 200/5 MDI INH SCH (08:16)
[2022-10-12 15:33] VITALS: BP 136/73
== END 2022-10-12 18:10 | disposition home or self-care (01) ==
LOC: ED 13:20 → EDHOLD 13:20 → MED 20:02
PROVIDERS: ADMIT Internal Medicine; ATTEND Internal Medicine

== ENCOUNTER 2023-12-04 23:28 | Inpatient (IN) ==
[2023-12-04 23:50] LABS: ABS Basophils 0.1 10^3/uL (0.0-0.1); ABS Eosinophils 0.5 10^3/uL (0.0-0.5); ABS Lymphocytes 2.9 10^3/uL (1.0-4.8); ABS Monocytes 0.8 10^3/uL (0.0-1.1); ABS Neutrophils 5.4 10^3/uL (1.5-7.6); ABS Nucleated RBC 0.03 10^3/ul; Eosinophil % 4.8 %; Hematocrit 40.6 % (38-53); Hemoglobin 13.7 g/dL (13.2-16.3); Mean Corpuscular Hemoglobin 27.2 pg (27-33); Mean Corpuscular Hgb Conc 33.9 g/dL (31-36); Mean Corpuscular Volume 80.4 fL (80-97); Mean Platelet Volume 7.7 fL (7.5-11.2); Nucleated Red Blood Cells % 0.3 %/100WBC (0.0-0.8); Platelet Count 237 10^3/uL (150-450); Red Blood Count 5.05 10^6/uL (4.06-5.63); Red Cell Distribution Width 14.1 % (12-17); White Blood Count 9.6 10^3/uL (3.6-10.2)
[2023-12-04 23:52] LABS: Venous Bicarbonate HCO3 26.7 mmol/L (24-28)
[2023-12-04] MEDS: Magnesium Sulfate 2 gm BAG 2 GM/50 ML BAG IVPB ONE (23:56)
[2023-12-04] MEDS: Albuterol 2.5mg/3 ml (0.083%) NEB.SOLN INH SCH (23:57)
[2023-12-04] MEDS: Albuterol/Ipratropium NEB.SOL (2.5/0.5 MG) 3 ML NEB.SOLN INH ONE (23:58)
[2023-12-05] MEDS: Lactated Ringers 1000 ml BAG 1,000 ML IV ONE ×2 (00:08→01:28)
[2023-12-05 00:15] LABS: High Sens Troponin Baseline 27 pg/mL (<20)
[2023-12-05 01:03] LABS: ALT 49 U/L (7-52); AST 42 U/L (13-39); Albumin 4.3 g/dL (3.2-5.2); Albumin/Globulin Ratio 1.7 (1-3); Alcohol, S < 13 mg/dL (<13); Alkaline Phosphatase 83 U/L (35-149); Anion Gap 11 mmol/L (2-16); Blood Urea Nitrogen 10 mg/dL (6-24); CO2 Carbon Dioxide 28 mmol/L (22-32); Calcium 9.4 mg/dL (8.6-10.3); Chloride 98 mmol/L (101-111); Creatinine, Serum 1.43 mg/dL (0.67-1.17); Globulin 2.5 g/dL (2-4); Glucose 135 mg/dL (70-100); Potassium 3.6 mmol/L (3.5-5.0); Sodium 137 mmol/L (135-145); Total Bilirubin 0.5 mg/dL (0.2-1.0); Total Protein 6.8 g/dL (6.4-8.9); eGFR CKD-EPI 69.3 (>60)
[2023-12-05 01:24] LABS: High Sensitivity Troponin 1 Hr 81 pg/mL (<20)
[2023-12-05] MEDS: Iodixanol (CONTRAST) 320 MG/ML 100 ML SDV IV ONE (02:35)
[2023-12-05] MEDS: Heparin DRIP 25,000 UNITS BAG 25,000 UNITS/250 ML BAG IV SCH ×2 (02:53→03:02)
[2023-12-05] MEDS: Heparin 5000 UNITS/ML 1 mL VIAL IV SCH (02:54)
[2023-12-05 02:59] LABS: Venous Bicarbonate HCO3 26.1 mmol/L (24-28)
[2023-12-05 03:24] LABS: High Sensitivity Troponin 3 Hr 92 pg/mL (<20)
[2023-12-05] MEDS: cefTRIAXone 1 gm/50 mL D5W 1 GM/50 ML BAG IV SCH (03:40)
[2023-12-05 03:48] LABS: C Reactive Protein 2.64 mg/L (<8.01)
[2023-12-05] MEDS: Azithromycin 500 mg/250 ml NS 500 MG/250 ML BAG IVPB SCH (04:28)
[2023-12-05] MEDS ORDERED: Albuterol 2.5mg/3 ml (0.083%) NEB.SOLN INH PRN (04:55)
[2023-12-05] MEDS: Albuterol/Ipratropium NEB.SOL (2.5/0.5 MG) 3 ML NEB.SOLN INH SCH (05:06)
[2023-12-05 06:34] LABS: ABS Lymphocytes 0.9 10^3/uL (1.0-4.8); ABS Monocytes 0.3 10^3/uL (0.0-1.1); ABS Neutrophils 10.7 10^3/uL (1.5-7.6); Eosinophil % 0.2 %; Hematocrit 40.5 % (38-53); Hemoglobin 13.3 g/dL (13.2-16.3); Lymphocyte % 7.7 %; Mean Corpuscular Hemoglobin 26.6 pg (27-33); Mean Corpuscular Hgb Conc 32.9 g/dL (31-36); Mean Corpuscular Volume 80.9 fL (80-97); Mean Platelet Volume 7.9 fL (7.5-11.2); Platelet Count 245 10^3/uL (150-450); Red Cell Distribution Width 14.1 % (12-17)
[2023-12-05 07:38] LABS: Albumin 4.2 g/dL (3.2-5.2); Albumin/Globulin Ratio 1.6 (1-3); Calcium 9.3 mg/dL (8.6-10.3); Creatinine, Serum 1.26 mg/dL (0.67-1.17); Globulin 2.6 g/dL (2-4); Magnesium 2.2 mg/dL (1.9-2.7); Potassium 4.6 mmol/L (3.5-5.0); Total Bilirubin 0.4 mg/dL (0.2-1.0); Total Protein 6.8 g/dL (6.4-8.9); eGFR CKD-EPI 80.7 (>60)
[2023-12-05] MEDS: methylPREDNISolone SOD SUCC 40 mg/ml 1 ml VIAL IV SCH (08:25)
[2023-12-05 10:10] LABS: Urine Appearance Clear; Urine Bilirubin Negative (Negative); Urine Blood Negative (Negative); Urine Color Colorless; Urine Glucose Negative (Negative); Urine Ketones Negative (Negative); Urine Nitrite Negative (Negative); Urine Protein Negative (Negative); Urine Specific Gravity 1.009 (1.002-1.030); Urine Urobilinogen Negative (Negative)
[2023-12-05 10:11] LABS: Urine Benzodiazepine Screen None Detected (None Detect); Urine Cannabinoids Screen Presumptive Positive (None Detect); Urine Opiates Screen None Detected (None Detect)
[2023-12-05 13:34] LABS: High Sensitivity Troponin 1 Hr 33 pg/mL (<20)
[2023-12-05 13:52] LABS: Prolactin 11.8 ng/mL (1.0-20.0)
[2023-12-06 06:25] LABS: ABS Lymphocytes 0.8 10^3/uL (1.0-4.8); ABS Monocytes 0.4 10^3/uL (0.0-1.1); ABS Neutrophils 12.7 10^3/uL (1.5-7.6); ABS Nucleated RBC 0.01 10^3/ul; Hematocrit 37.3 % (38-53); Hemoglobin 12.3 g/dL (13.2-16.3); Lymphocyte % 5.5 %; Mean Corpuscular Hemoglobin 26.6 pg (27-33); Mean Corpuscular Volume 80.5 fL (80-97); Nucleated Red Blood Cells % 0.1 %/100WBC (0.0-0.8); Platelet Count 236 10^3/uL (150-450); Red Blood Count 4.64 10^6/uL (4.06-5.63); Red Cell Distribution Width 14.1 % (12-17); White Blood Count 13.8 10^3/uL (3.6-10.2)
[2023-12-06 06:40] LABS: Albumin/Globulin Ratio 1.7 (1-3); Calcium 9.5 mg/dL (8.6-10.3); Creatinine, Serum 1.04 mg/dL (0.67-1.17); Globulin 2.4 g/dL (2-4); Total Bilirubin 0.3 mg/dL (0.2-1.0); Total Protein 6.4 g/dL (6.4-8.9); eGFR CKD-EPI 101.6 (>60)
[2023-12-06] MEDS ORDERED: Enoxaparin 40 MG/0.4 ML SYR SUBCUT SCH (20:00)
[2023-12-07 06:05] LABS: ABS Lymphocytes 2.5 10^3/uL (1.0-4.8); ABS Monocytes 0.8 10^3/uL (0.0-1.1); ABS Neutrophils 8.5 10^3/uL (1.5-7.6); ABS Nucleated RBC 0.02 10^3/ul; Eosinophil % 0.4 %; Hematocrit 36.6 % (38-53); Hemoglobin 12.2 g/dL (13.2-16.3); Lymphocyte % 20.9 %; Mean Corpuscular Hemoglobin 26.8 pg (27-33); Mean Corpuscular Hgb Conc 33.3 g/dL (31-36); Mean Corpuscular Volume 80.4 fL (80-97); Mean Platelet Volume 7.8 fL (7.5-11.2); Nucleated Red Blood Cells % 0.2 %/100WBC (0.0-0.8); Platelet Count 216 10^3/uL (150-450); Red Blood Count 4.55 10^6/uL (4.06-5.63); Red Cell Distribution Width 14.3 % (12-17); White Blood Count 11.8 10^3/uL (3.6-10.2)
[2023-12-07 06:44] LABS: Albumin 3.6 g/dL (3.2-5.2); Albumin/Globulin Ratio 1.7 (1-3); Calcium 8.4 mg/dL (8.6-10.3); Creatinine, Serum 1.12 mg/dL (0.67-1.17); Globulin 2.1 g/dL (2-4); Magnesium 1.7 mg/dL (1.9-2.7); Potassium 3.8 mmol/L (3.5-5.0); Total Bilirubin 0.3 mg/dL (0.2-1.0); Total Protein 5.7 g/dL (6.4-8.9); eGFR CKD-EPI 92.9 (>60)
[2023-12-07] MEDS: Magnesium Sulfate 2 gm BAG 2 GM/50 ML BAG IVPB ONE (09:48)
[2023-12-07 10:31] VITALS: BP 123/66
[2023-12-07] MEDS ORDERED: Albuterol/Ipratropium NEB.SOL (2.5/0.5 MG) 3 ML NEB.SOLN INH PRN (10:49)
== END 2023-12-07 15:35 | disposition home or self-care (01) | DRG 189 ==
LOC: ED 23:28 → SUATTDRO 12-05 04:18 → EDHOLD 12-05 04:18 → SSU 12-05 16:09
PROVIDERS: ADMIT Internal Medicine Pulmonary Disease; ATTEND Internal Medicine

== ENCOUNTER 2024-01-30 05:07 | Inpatient (IN) ==
[2024-01-30] MEDS: methylPREDNISolone SOD SUCC 125 mg 2 ML VIAL IV ONE (05:42)
[2024-01-30] MEDS: Magnesium Sulfate 2 gm BAG 2 GM/50 ML BAG IVPB ONE (05:42)
[2024-01-30] MEDS: NS 0.9% 1000 ml BAG 1,000 ML IV ONE (05:42)
[2024-01-30 05:46] LABS: ABS Basophils 0.1 10^3/uL (0.0-0.1); ABS Eosinophils 1.1 10^3/uL (0.0-0.5); ABS Lymphocytes 1.5 10^3/uL (1.0-4.8); ABS Monocytes 0.9 10^3/uL (0.0-1.1); ABS Neutrophils 11.2 10^3/uL (1.5-7.6); ABS Nucleated RBC 0.01 10^3/ul; Eosinophil % 7.3 %; Hematocrit 41.9 % (38-53); Hemoglobin 14.1 g/dL (13.2-16.3); Lymphocyte % 10.4 %; Mean Corpuscular Hemoglobin 27.2 pg (27-33); Mean Corpuscular Hgb Conc 33.8 g/dL (31-36); Mean Corpuscular Volume 80.6 fL (80-97); Mean Platelet Volume 7.6 fL (7.5-11.2); Platelet Count 245 10^3/uL (150-450); Red Blood Count 5.19 10^6/uL (4.06-5.63); Red Cell Distribution Width 14.2 % (12-17); White Blood Count 14.8 10^3/uL (3.6-10.2)
[2024-01-30] MEDS: Albuterol/Ipratropium NEB.SOL (2.5/0.5 MG) 3 ML NEB.SOLN INH PRN ×2 (05:54→08:54)
[2024-01-30 06:40] LABS: Albumin 4.5 g/dL (3.2-5.2); Albumin/Globulin Ratio 1.7 (1-3); Calcium 9.3 mg/dL (8.6-10.3); Creatinine, Serum 1.26 mg/dL (0.67-1.17); Globulin 2.6 g/dL (2-4); Total Bilirubin 0.5 mg/dL (0.2-1.0); Total Protein 7.1 g/dL (6.4-8.9); eGFR CKD-EPI 80.7 (>60)
[2024-01-30] MEDS: Albuterol/Ipratropium NEB.SOL (2.5/0.5 MG) 3 ML NEB.SOLN INH SCH ×2 (08:56→19:06)
[2024-01-30] MEDS ORDERED: Albuterol 2.5mg/3 ml (0.083%) NEB.SOLN INH PRN (09:36)
[2024-01-30] MEDS: Albuterol 2.5mg/3 ml (0.083%) NEB.SOLN INH SCH (09:37)
[2024-01-30] MEDS: methylPREDNISolone SOD SUCC 40 mg/ml 1 ml VIAL IV SCH (12:17)
[2024-01-31 04:51] LABS: ABS Lymphocytes 0.9 10^3/uL (1.0-4.8); ABS Monocytes 0.6 10^3/uL (0.0-1.1); ABS Neutrophils 14.5 10^3/uL (1.5-7.6); ABS Nucleated RBC 0.01 10^3/ul; Hematocrit 40.1 % (38-53); Hemoglobin 13.1 g/dL (13.2-16.3); Lymphocyte % 5.5 %; Mean Corpuscular Hemoglobin 26.6 pg (27-33); Mean Corpuscular Hgb Conc 32.7 g/dL (31-36); Mean Corpuscular Volume 81.3 fL (80-97); Mean Platelet Volume 7.6 fL (7.5-11.2); Platelet Count 241 10^3/uL (150-450); Red Blood Count 4.94 10^6/uL (4.06-5.63); Red Cell Distribution Width 14.2 % (12-17)
[2024-01-31 05:32] LABS: Calcium 9.5 mg/dL (8.6-10.3); Creatinine, Serum 0.98 mg/dL (0.67-1.17); Magnesium 1.9 mg/dL (1.9-2.7); Potassium 4.5 mmol/L (3.5-5.0); eGFR CKD-EPI 109.1 (>60)
[2024-01-31] MEDS: guaiFENesin/CODIENE 100mg/10mg 5 ML UDC PO PRN (08:06)
[2024-02-01 04:38] LABS: ABS Lymphocytes 0.9 10^3/uL (1.0-4.8); ABS Monocytes 0.8 10^3/uL (0.0-1.1); ABS Neutrophils 15.9 10^3/uL (1.5-7.6); ABS Nucleated RBC 0.01 10^3/ul; Eosinophil % 0.1 %; Hematocrit 41.4 % (38-53); Hemoglobin 13.5 g/dL (13.2-16.3); Lymphocyte % 5.1 %; Mean Corpuscular Hemoglobin 26.5 pg (27-33); Mean Corpuscular Hgb Conc 32.6 g/dL (31-36); Mean Corpuscular Volume 81.2 fL (80-97); Mean Platelet Volume 7.7 fL (7.5-11.2); Nucleated Red Blood Cells % 0.1 %/100WBC (0.0-0.8); Platelet Count 269 10^3/uL (150-450); Red Blood Count 5.09 10^6/uL (4.06-5.63); Red Cell Distribution Width 14.3 % (12-17); White Blood Count 17.6 10^3/uL (3.6-10.2)
[2024-02-01 05:10] LABS: Albumin 4.4 g/dL (3.2-5.2); Albumin/Globulin Ratio 1.9 (1-3); Calcium 9.6 mg/dL (8.6-10.3); Creatinine, Serum 0.99 mg/dL (0.67-1.17); Globulin 2.3 g/dL (2-4); Magnesium 1.8 mg/dL (1.9-2.7); Potassium 3.8 mmol/L (3.5-5.0); Total Bilirubin 0.4 mg/dL (0.2-1.0); Total Protein 6.7 g/dL (6.4-8.9); eGFR CKD-EPI 107.7 (>60)
[2024-02-01] MEDS ORDERED: Albuterol 2.5mg/3 ml (0.083%) NEB.SOLN INH PRN (07:03)
[2024-02-01] MEDS: Magnesium Sulfate 2 gm BAG 2 GM/50 ML BAG IVPB ONE (10:21)
[2024-02-01] MEDS ORDERED: Albuterol HFA INHALER 8 gm MDI INH PRN (13:41)
[2024-02-02 05:42] LABS: Calcium 9.2 mg/dL (8.6-10.3); Potassium 4.5 mmol/L (3.5-5.0); eGFR CKD-EPI 106.5 (>60)
[2024-02-02] MEDS ORDERED: Albuterol/Ipratropium NEB.SOL (2.5/0.5 MG) 3 ML NEB.SOLN INH PRN (07:41)
[2024-02-02 09:15] VITALS: BP 118/56
[2024-02-02] MEDS ORDERED: Albuterol HFA INHALER 8 gm MDI INH PRN (11:00)
[2024-02-02] MEDS: Albuterol HFA INHALER 8 gm MDI INH SCH (11:38)
== END 2024-02-02 12:45 | disposition home or self-care (01) | DRG 202 ==
LOC: ED 05:07 → SUATTDRO 08:27 → EDHOLD 08:27 → ICU 09:24 → MED 01-31 17:35
PROVIDERS: ADMIT Internal Medicine; ATTEND Internal Medicine

== ENCOUNTER 2024-04-01 00:47 | Inpatient (IN) ==
[2024-04-01] MEDS ORDERED: Ondansetron 4 mg VIAL 2 MG/ML 2 ml VIAL ONE (01:13)
[2024-04-01] MEDS: Ondansetron 4 mg VIAL 2 MG/ML 2 ml VIAL IV ONE (01:18)
[2024-04-01] MEDS ORDERED: Albuterol/Ipratropium NEB.SOL (2.5/0.5 MG) 3 ML NEB.SOLN ONE (01:27)
[2024-04-01] MEDS: methylPREDNISolone SOD SUCC 125 mg 2 ML VIAL IV ONE (01:28)
[2024-04-01] MEDS: Magnesium Sulfate 2 gm BAG 2 GM/50 ML BAG IVPB ONE (01:29)
[2024-04-01] MEDS: NS 0.9% 1000 ml BAG 1,000 ML IV ONE (01:30)
[2024-04-01] MEDS: Albuterol/Ipratropium NEB.SOL (2.5/0.5 MG) 3 ML NEB.SOLN INH PRN ×2 (01:30→05:08)
[2024-04-01 01:40] LABS: ABS Eosinophils 0.9 10^3/uL (0.0-0.5); ABS Lymphocytes 1.2 10^3/uL (1.0-4.8); ABS Neutrophils 10.7 10^3/uL (1.5-7.6); ABS Nucleated RBC 0.01 10^3/ul; Eosinophil % 6.6 %; Hemoglobin 14.9 g/dL (13.2-16.3); Mean Corpuscular Hemoglobin 27.2 pg (27-33); Mean Corpuscular Hgb Conc 33.8 g/dL (31-36); Mean Corpuscular Volume 80.3 fL (80-97); Platelet Count 248 10^3/uL (150-450); Red Blood Count 5.47 10^6/uL (4.06-5.63); Red Cell Distribution Width 14.6 % (12-17); White Blood Count 13.8 10^3/uL (3.6-10.2)
[2024-04-01 02:16] LABS: Albumin 4.9 g/dL (3.2-5.2); Albumin/Globulin Ratio 1.8 (1-3); Calcium 9.8 mg/dL (8.6-10.3); Creatinine, Serum 1.13 mg/dL (0.67-1.17); Globulin 2.7 g/dL (2-4); Potassium 3.5 mmol/L (3.5-5.0); Total Bilirubin 0.9 mg/dL (0.2-1.0); Total Protein 7.6 g/dL (6.4-8.9); eGFR CKD-EPI 91.9 (>60)
[2024-04-01] MEDS: methylPREDNISolone SOD SUCC 125 mg 2 ML VIAL IV SCH (07:44)
[2024-04-01] MEDS: Enoxaparin 40 MG/0.4 ML SYR SUBCUT SCH (07:44)
[2024-04-01] MEDS: Azithromycin 500 mg/250 ml NS 500 MG/250 ML BAG IVPB SCH (07:44)
[2024-04-01] MEDS: Albuterol/Ipratropium NEB.SOL (2.5/0.5 MG) 3 ML NEB.SOLN INH SCH ×2 (08:03→20:05)
[2024-04-01] MEDS ORDERED: Albuterol/Ipratropium NEB.SOL (2.5/0.5 MG) 3 ML NEB.SOLN INH PRN (08:50)
[2024-04-01 09:40] LABS: C Reactive Protein 8.9 mg/L (<8.01)
[2024-04-03 10:03] VITALS: BP 142/75
== END 2024-04-03 14:35 | disposition home or self-care (01) | DRG 203 ==
LOC: ED 00:47 → EDHOLD 00:47 → SUATTDRO 05:21 → SSU 15:39
PROVIDERS: ADMIT Internal Medicine; ATTEND Internal Medicine